=== PATIENT | female | born 1945 | race Caucasian/White ===

== ENCOUNTER 2016-09-16 17:44 | Inpatient (IN) | payer OTHER, BC ==
[~2016-09-16] VITALS: Ht 160 cm; Wt 61.8 kg
[~2016-09-16 17:44] MED LIST: ASPI-435 PO; CRS/10 PO; INDSR/60 PO; PRIM250T9 PO
[2016-09-16] MEDS ORDERED: SODIUM CHLORIDE 0.9% 1000ML 1,000 ML IV STA (18:19)
--- NOTE | 2016-09-16 18:37 | EMERGENCY ROOM VISIT NOTE ---
History Report prepared by Hiral: Cheli Roberts Under the Supervision of: Dr. Remigio Story M.D. First contact with patient: 18:00 Chief Complaint: WEAKNESS Stated Complaint: WEAKNESS,DEHYDRATION History of Present Illness The patient is a 70 year old female who presents to the Emergency Room with complaints of persistent weakness for the past three days. The patient reports that she had gotten into the bathtub three days ago and became too weak and could not get herself out. She denies any pain or fall into the tub. The patient's granddaughters report that the patient appears slower than her baseline today. The patient states that she lives alone. She states that she feels thirsty and denies eating any food for the past three days. The patient states she urinated while in the tub. She states that she smokes a pack of cigarettes each day. The patient reports burning with urination and a recent cough and cold. Source of History: patient, family (granddaughters) Onset: three days Position: other (global) Quality: other (weakness) Timing: other (persistent) Associated Symptoms: + cough, + urinary symptoms (burning with urination) Review of Systems See HPI for pertinent positives & negatives. A total of 10 systems reviewed and were otherwise negative. Past Medical & Surgical Medical Problems: (1) Hypertension Family History Cancer Diabetes mellitus Hypertension Social History Smoking Status: Current Every Day Smoker Alcohol Use: none Drug Use: none Marital Status: single Housing Status: lives with family Occupation Status: retired Current/Historical Medications Scheduled Aspirin (Aspirin 81), 81 MG PO DAILY Citalopram Hydrobromide (Citalopram Hydrobromide), 1 TAB PO DAILY Primidone (Mysoline), 1 TAB PO BID Propranolol Hcl (Propranolol ER), 160 MG PO DAILY Rosuvastatin Calcium (Crestor), 10 MG PO HS Miscellaneous Medications Ibuprofen (Advil), 200 MG PO Allergies Coded Allergies: Atorvastatin (Verified Allergy, Unknown, Unstable, 09/16/16) Physical Exam Vital Signs Date Time Temp Pulse Resp B/P (MAP) Pulse Ox O2 Delivery O2 Flow Rate FiO2 09/16/16 19:15 72 09/16/16 17:47 36.4 77 22 103/55 95 Room Air Physical Exam GENERAL: Patient is in no acute distress. HEENT: No acute trauma, normocephalic atraumatic, mucous membranes moist, no nasal congestion, no scleral icterus. NECK: No stridor, no adenopathy, no meningismus, trachea is midline. LUNGS: Diminished breath sounds bilaterally, no wheezing or rhonchi, no respiratory distress. HEART: Without murmurs gallops or rubs, regular rate and rhythm. ABDOMEN: Soft, nontender, bowel sounds positive, no hernias, no peritonitis. BUTTOCK: No skin breakdown. EXTREMITIES: Contusions to both elbows, consistent with her history, no evidence for underlying fracture. NEUROLOGIC: Oriented x 3, no acute motor or sensory deficits, no focal weakness. SKIN: No rash, no jaundice, no diaphoresis. Medical Decision & Procedures ER Provider Diagnostic Interpretation: Radiology results as stated below per my review and radiologist interpretation: CT SCAN OF THE BRAIN WITHOUT IV CONTRAST CLINICAL HISTORY: Change in mental status. Weakness. COMPARISON STUDY: CT of the brain dated 03/18/2014. TECHNIQUE: Unenhanced axial CT scan of the brain is performed from the vertex to the skull base. The patient was scanned twice due to motion artifact. CT DOSE: 1382.10 mGy.cm FINDINGS: Brain parenchyma: There are age-related involutional changes noting moderate patchy subcortical and periventricular microangiopathic change. Small foci of right parietal, occipital, and frontal encephalomalacia are consistent with remote infarcts. There is no hemorrhage, mass effect, or evidence of acute territorial ischemia by CT criteria. Spivey-white matter is preserved. No extra-axial fluid collection is seen. Ventricles, sulci, cisterns: Prominent secondary to involutional change. Intracranial vasculature: There is atherosclerotic calcification of the cavernous carotid and vertebral arteries. Calvarium: Unremarkable. Sinuses and mastoids: The visualized paranasal sinuses are clear. The mastoid air cells are well pneumatized. Orbits: The bony orbits are grossly intact. IMPRESSION: Senescent changes and remote infarcts as above. There is no hemorrhage, mass effect, or evidence of acute territorial ischemia by CT criteria. Electronically signed by: Remigio Fonseca M.D. 09/16/2016 7:44 PM Dictated Date/Time: 09/16/2016 7:40 PM SINGLE VIEW CHEST CLINICAL HISTORY: Generalized weakness. Change in mental status FINDINGS: An AP, portable, upright chest radiograph is compared to study dated 03/18/2014. The examination is degraded by portable technique and patient rotation. The cardiomediastinal silhouette is unremarkable. There is atherosclerotic calcification of the thoracic aorta. Chronic interstitial thickening is unchanged. There are foci of masslike consolidation in the right upper and right lower lung. The left lung appears clear and there is no large pleural effusion or pneumothorax. The skeletal structures are osteopenic. The bony thorax is grossly intact. IMPRESSION: 1. There are foci of masslike consolidation in the right upper and right lower lung. Correlate clinically for evidence of pneumonia. If there is evidence of pneumonia then radiographic follow-up to resolution is recommended to document resolution. If there is no clinical evidence of pneumonia then a chest CT scan should be considered for further assessment. 2. The left lung is clear and there is no pleural effusion identified. Electronically signed by: Remigio Fonseca M.D. 09/16/2016 7:06 PM Dictated Date/Time: 09/16/2016 7:04 PM Laboratory Results 09/16/16 18:40 Red Blood Count 4.19, Mean Corpuscular Volume 92.6, Mean Corpuscular Hemoglobin 31.0, Mean Corpuscular Hemoglobin Concent 33.5, Mean Platelet Volume 9.2, Neutrophils (%) (Auto) 85.7, Lymphocytes (%) (Auto) 6.3, Monocytes (%) (Auto) 6.1, Eosinophils (%) (Auto) 0.8, Basophils (%) (Auto) 0.1, Neutrophils # (Auto) 15.28, Lymphocytes # (Auto) 1.12, Monocytes # (Auto) 1.09, Eosinophils # (Auto) 0.14, Basophils # (Auto) 0.02 09/16/16 18:40 Test 09/16/16 00:00 09/16/16 18:40 09/16/16 19:55 White Blood Count 17.82 K/uL (4.8-10.8) Red Blood Count 4.19 M/uL (4.2-5.4) Hemoglobin 13.0 g/dL (12.0-16.0) Hematocrit 38.8 % (37-47) Mean Corpuscular Volume 92.6 fL (80-100) Mean Corpuscular Hemoglobin 31.0 pg (25-34) Mean Corpuscular Hemoglobin Concent 33.5 g/dl (32-36) Platelet Count 557 K/uL (130-400) Mean Platelet Volume 9.2 fL (7.4-10.4) Neutrophils (%) (Auto) 85.7 % Lymphocytes (%) (Auto) 6.3 % Monocytes (%) (Auto) 6.1 % Eosinophils (%) (Auto) 0.8 % Basophils (%) (Auto) 0.1 % Neutrophils # (Auto) 15.28 K/uL (1.4-6.5) Lymphocytes # (Auto) 1.12 K/uL (1.2-3.4) Monocytes # (Auto) 1.09 K/uL (0.11-0.59) Eosinophils # (Auto) 0.14 K/uL (0-0.5) Basophils # (Auto) 0.02 K/uL (0-0.2) RDW Standard Deviation 48.9 fL (36.4-46.3) RDW Coefficient of Variation 14.3 % (11.5-14.5) Immature Granulocyte % (Auto) 1.0 % Immature Granulocyte # (Auto) 0.17 K/uL (0.00-0.02) Red Blood Cell Morphology Unremarkable Anion Gap 9.0 mmol/L (3-11) Estimated GFR () 58.1 Estimated GFR (Non- 50.1 BUN/Creatinine Ratio 26.9 (10-20) Calcium Level 8.6 mg/dl (8.5-10.1) Total Bilirubin 0.4 mg/dl (0.2-1) Aspartate Amino Transf (AST/SGOT) 43 U/L (15-37) Alanine Aminotransferase (ALT/SGPT) 28 U/L (12-78) Alkaline Phosphatase 117 U/L (45-117) Total Creatine Kinase 288 U/L (26-192) Troponin I < 0.015 ng/ml (0-0.045) Total Protein 7.4 gm/dl (6.4-8.2) Albumin 2.4 gm/dl (3.4-5.0) Globulin 5.0 gm/dl (2.5-4.0) Albumin/Globulin Ratio 0.5 (0.9-2) Thyroid Stimulating Hormone (TSH) 1.790 uIu/ml (0.300-4.500) Lactic Acid Level 1.6 mmol/L (0.4-2.0) Laboratory results reviewed by me. Medications Administered Medications (Trade) Dose Ordered Sig/Paula Route Start Time Stop Time Status Last Admin Dose Admin Sodium Chloride 1,000 ml @ 999 mls/hr Q1H1M STAT IV 09/16/16 18:19 09/16/16 19:19 DC 09/16/16 20:08 999 MLS/HR Piperacillin Sod/ Tazobactam Sod (Zosyn Iv) 4.5 gm NOW STAT IV 09/16/16 19:41 09/16/16 19:42 DC 09/16/16 20:08 4.5 GM ECG Indication: weakness Rate (beats per minute): 69 Rhythm: normal sinus Findings: no acute ischemic change, no ectopy ED Course 1806: The patient was evaluated in room B10. A complete history and physical exam was performed by the work and family life consultant. 1818: Ordered Sodium Chloride 1000 ml @ 999 mls/hr IV. 1827: The patient was evaluated in room B10. A complete history and physical exam was performed. 1947: The resident reevaluated the patient and she is resting comfortably. After discussing all the exam findings with the patient and her family he discussed the treatment plan with the family. They all verbalized complete understanding and agreement. The patient will be evaluated for further treatment. 2029: The patient's case was discussed with Clarence Hennessy. He is going to evaluate the patient for further treatment. Medical Decision The patient is a 70 year old female who presents to the ED with complaints of weakness. Differential diagnoses considered include rhabdomyolysis, dehydration , intracranial bleeding, fracture, stroke, renal failure, infection, anemia, UTI. There is a moderate leukocytosis at 17,000, this could be consistent with infection. No concerning anemia. No significant electrolyte abnormality or kidney failure. There is no evidence for rhabdomyolysis. There is no hepatitis. The patient appears to be in a euthyroid state. Blood culture is pending. Chest film shows a possible pneumonia on the right. No CHF. Brain CT shows no acute bleed or mass effect. Urinalysis result is presently pending. EKG shows a sinus rhythm, no acute ischemia. Cardiac enzyme testing times one is not consistent with acute cardiac injury. Lactic acid level is not elevated making severe sepsis less likely. The patient received IV saline, she was given IV Zosyn. Given the prolonged down time for around 3 days, given her weakness, given the fact that she lives alone, given her pneumonia, admission/observation was felt warranted. I spoke with the foster care case manager, the patient is aware of her findings. The on-call hospitalist has been consulted. Medication Reconciliation: I attest that I have personally reviewed the patient' s current medication list. Blood Pressure Screening: Patient was found to have normal blood pressure on screening and does not require follow-up. Consults Time Called: 1950 Consulting Physician: Clarence Hennessy The patient's case was discussed with Clarence Hennessy. He is going to evaluate the patient for further treatment. Impression Primary Impression: Pneumonia Additional Impressions: Weakness Dehydration Scribe Attestation The scribe's documentation has been prepared under my direction and personally reviewed by me in its entirety. I confirm that the note above accurately reflects all work, treatment, procedures, and medical decision making performed by me. Departure Information Dispostion Being Evaluated By Hospitalist Referrals Isha Narvaze M.D. (PCP) Problem Qualifiers
--- NOTE | 2016-09-16 18:45 | EMERGENCY ROOM VISIT NOTE ---
History First contact with patient: 18:06 Chief Complaint: WEAKNESS Stated Complaint: WEAKNESS,DEHYDRATION History of Present Illness The patient is a 70 year old female who presents to the Emergency Room with complaints of weakness. The patient was found at home in the bathtub by her granddaughter after being unable to get up out of the tub. She was in there for an unknown period of time and was found in her own urine in the tube. She denies any hip or elbow pain or any falls. She is constipated and has not had a bowel movement in 3 days but does have constipation regularly. She denies any fever, chills, abdominal pain, diarrhea, chest pain, headache, or vision changes. Her granddaughter states that Katharine does seem more unsteady today and is much slower and more hesitant when moving around. Review of Systems See HPI for pertinent positives and negatives. A total of ten systems were reviewed and were otherwise negative. Past Medical/Surgical History Medical Problems: (1) Hypertension Family History Cancer Diabetes mellitus Hypertension Social History Smoking Status: Current Every Day Smoker Alcohol Use: none Drug Use: none Marital Status: single Housing Status: lives with family Occupation Status: retired Current/Historical Medications Scheduled Aspirin (Aspirin 81), 81 MG PO DAILY Citalopram Hydrobromide (Citalopram Hydrobromide), 1 TAB PO DAILY Primidone (Mysoline), 1 TAB PO BID Propranolol Hcl (Propranolol ER), 160 MG PO DAILY Rosuvastatin Calcium (Crestor), 10 MG PO HS Miscellaneous Medications Ibuprofen (Advil), 200 MG PO Allergies Coded Allergies: Atorvastatin (Verified Allergy, Unknown, Unstable, 09/16/16) Physical Exam Vital Signs Date Time Temp Pulse Resp B/P (MAP) Pulse Ox O2 Delivery O2 Flow Rate FiO2 09/16/16 19:15 72 09/16/16 17:47 36.4 77 22 103/55 95 Room Air Physical Exam GENERAL: Awake, alert, well-appearing, in no distress HENT: Normocephalic, atraumatic. Oropharynx unremarkable. EYES: Normal conjunctiva. Sclera non-icteric. NECK: Supple. No nuchal rigidity. RESPIRATORY: Decreased breath sounds bilaterally CARDIAC: Regular rate, normal rhythm. Extremities warm and well perfused. Pulses equal. ABDOMEN: Soft, non-distended. No tenderness to palpation. No rebound or guarding. No masses. RECTAL: Deferred. MUSCULOSKELETAL: Chest examination reveals no tenderness. The back is symmetrical on inspection without obvious abnormality. There is no CVA tenderness to palpation. No joint edema. Hips are non tender to palpation, hip rocking was non tender. Left elbow hematoma, nontender to palpation. LOWER EXTREMITIES: Calves are equal size bilaterally and non-tender. No edema. No discoloration. NEURO: Normal sensorium. No sensory or motor deficits noted. SKIN: No rash or jaundice noted. Medical Decision & Procedures Laboratory Results 09/16/16 18:40 Red Blood Count 4.19, Mean Corpuscular Volume 92.6, Mean Corpuscular Hemoglobin 31.0, Mean Corpuscular Hemoglobin Concent 33.5, Mean Platelet Volume 9.2, Neutrophils (%) (Auto) 85.7, Lymphocytes (%) (Auto) 6.3, Monocytes (%) (Auto) 6.1, Eosinophils (%) (Auto) 0.8, Basophils (%) (Auto) 0.1, Neutrophils # (Auto) 15.28, Lymphocytes # (Auto) 1.12, Monocytes # (Auto) 1.09, Eosinophils # (Auto) 0.14, Basophils # (Auto) 0.02 09/16/16 18:40 Test 09/16/16 00:00 09/16/16 18:40 09/16/16 19:55 White Blood Count 17.82 K/uL (4.8-10.8) Red Blood Count 4.19 M/uL (4.2-5.4) Hemoglobin 13.0 g/dL (12.0-16.0) Hematocrit 38.8 % (37-47) Mean Corpuscular Volume 92.6 fL (80-100) Mean Corpuscular Hemoglobin 31.0 pg (25-34) Mean Corpuscular Hemoglobin Concent 33.5 g/dl (32-36) Platelet Count 557 K/uL (130-400) Mean Platelet Volume 9.2 fL (7.4-10.4) Neutrophils (%) (Auto) 85.7 % Lymphocytes (%) (Auto) 6.3 % Monocytes (%) (Auto) 6.1 % Eosinophils (%) (Auto) 0.8 % Basophils (%) (Auto) 0.1 % Neutrophils # (Auto) 15.28 K/uL (1.4-6.5) Lymphocytes # (Auto) 1.12 K/uL (1.2-3.4) Monocytes # (Auto) 1.09 K/uL (0.11-0.59) Eosinophils # (Auto) 0.14 K/uL (0-0.5) Basophils # (Auto) 0.02 K/uL (0-0.2) RDW Standard Deviation 48.9 fL (36.4-46.3) RDW Coefficient of Variation 14.3 % (11.5-14.5) Immature Granulocyte % (Auto) 1.0 % Immature Granulocyte # (Auto) 0.17 K/uL (0.00-0.02) Red Blood Cell Morphology Unremarkable Anion Gap 9.0 mmol/L (3-11) Estimated GFR () 58.1 Estimated GFR (Non- 50.1 BUN/Creatinine Ratio 26.9 (10-20) Calcium Level 8.6 mg/dl (8.5-10.1) Total Bilirubin 0.4 mg/dl (0.2-1) Aspartate Amino Transf (AST/SGOT) 43 U/L (15-37) Alanine Aminotransferase (ALT/SGPT) 28 U/L (12-78) Alkaline Phosphatase 117 U/L (45-117) Total Creatine Kinase 288 U/L (26-192) Troponin I < 0.015 ng/ml (0-0.045) Total Protein 7.4 gm/dl (6.4-8.2) Albumin 2.4 gm/dl (3.4-5.0) Globulin 5.0 gm/dl (2.5-4.0) Albumin/Globulin Ratio 0.5 (0.9-2) Thyroid Stimulating Hormone (TSH) 1.790 uIu/ml (0.300-4.500) Lactic Acid Level 1.6 mmol/L (0.4-2.0) Medications Administered Medications (Trade) Dose Ordered Sig/Paula Route Start Time Stop Time Status Last Admin Dose Admin Sodium Chloride 1,000 ml @ 999 mls/hr Q1H1M STAT IV 09/16/16 18:19 09/16/16 19:19 DC 09/16/16 20:08 999 MLS/HR Piperacillin Sod/ Tazobactam Sod (Zosyn Iv) 4.5 gm NOW STAT IV 09/16/16 19:41 6/2/17 19:42 DC 09/16/16 20:08 4.5 GM Medical Decision Patient is a 70 year old female that presents with a 1 week history of weakness Differential diagnosis includes UTI, Pneumonia, Constipation, Dementia, URI, and other etiologies were considered - CBC, BMP, CPK, TSH, Troponin - Head CT, CXR, UA Cath, EKG - Chest X Ray shows right sided masses signifying a possible pneumonia - Head CT Negative - Based on CXR family did not feel comfortable treating the patient at home especially with ongoing weakness - Discussed case with [facility] Hospitalist who was agreeable to seeing the patient for possible observation in the hospital Impression Primary Impression: Pneumonia Additional Impression: Weakness Departure Information Dispostion Admitted as an inpatient Condition GOOD Referrals Isha Narvaez M.D. (PCP) Patient Instructions [facility] Problem Qualifiers Primary Impression: Pneumonia Pneumonia type: due to unspecified organism Laterality: right Lung location : unspecified part of lung Qualified Codes: J18.9 - Pneumonia, unspecified organism
[2016-09-16 18:47] LABS: HEMATOCRIT 38.8 % (37-47); MEAN CELL VOLUME 92.6 fL (80-100); MEAN CORPUSCULAR HGB CONC 33.5 g/dl (32-36); MEAN PLATELET VOLUME 9.2 fL (7.4-10.4); PLATELET COUNT 557 K/uL (130-400); RED BLOOD COUNT 4.19 M/uL (4.2-5.4); WHITE BLOOD COUNT 17.82 K/uL (4.8-10.8)
[2016-09-16 19:05] LABS: ALT/SGPT 28 U/L (12-78); AST/SGOT 43 U/L (15-37); BLOOD UREA NITROGEN 30 mg/dl (7-18); BUN/CREATININE RATIO 26.9 (10-20); CALCIUM 8.6 mg/dl (8.5-10.1); CARBON DIOXIDE 30 mmol/L (21-32); CHLORIDE 98 mmol/L (98-107); GLUCOSE 119 mg/dl (70-99); POTASSIUM 4.4 mmol/L (3.5-5.1); SODIUM 137 mmol/L (136-145)
--- NOTE | 2016-09-16 19:07 | DIAGNOSTIC IMAGING REPORT ---
SINGLE VIEW CHEST CLINICAL HISTORY: Generalized weakness. Change in mental status FINDINGS: An AP, portable, upright chest radiograph is compared to study dated 03/18/2014. The examination is degraded by portable technique and patient rotation. The cardiomediastinal silhouette is unremarkable. There is atherosclerotic calcification of the thoracic aorta. Chronic interstitial thickening is unchanged. There are foci of masslike consolidation in the right upper and right lower lung. The left lung appears clear and there is no large pleural effusion or pneumothorax. The skeletal structures are osteopenic. The bony thorax is grossly intact. IMPRESSION: 1. There are foci of masslike consolidation in the right upper and right lower lung. Correlate clinically for evidence of pneumonia. If there is evidence of pneumonia then radiographic follow-up to resolution is recommended to document resolution. If there is no clinical evidence of pneumonia then a chest CT scan should be considered for further assessment. 2. The left lung is clear and there is no pleural effusion identified. Electronically signed by: Remigio Fonseca M.D. 09/16/2016 7:06 PM Dictated Date/Time: 09/16/2016 7:04 PM
[2016-09-16 19:21] LABS: ALB/GLOB RATIO 0.5 (0.9-2); ALKALINE PHOSPHATASE 117 U/L (45-117)
[2016-09-16] MEDS ORDERED: CITA10TA4 PO (19:29)
[2016-09-16] MEDS ORDERED: IBUP-1050 PO (19:29)
[2016-09-16] MEDS ORDERED: PIPERACILLIN/TAZOBACTAM 4.5 GM/100ML D5W IV STA (19:41)
[2016-09-16 19:43] LABS: BASO % 0.1 %; BASO ABS # 0.02 K/uL (0-0.2); COMPLETE YES; EOS % 0.8 %; LYMPH % 6.3 %; LYMPH ABS # 1.12 K/uL (1.2-3.4); MONO % 6.1 %; NEUT % 85.7 %
--- NOTE | 2016-09-16 19:45 | DIAGNOSTIC IMAGING REPORT ---
CT SCAN OF THE BRAIN WITHOUT IV CONTRAST CLINICAL HISTORY: Change in mental status. Weakness. COMPARISON STUDY: CT of the brain dated 03/18/2014. TECHNIQUE: Unenhanced axial CT scan of the brain is performed from the vertex to the skull base. The patient was scanned twice due to motion artifact. CT DOSE: 1382.10 mGy.cm FINDINGS: Brain parenchyma: There are age-related involutional changes noting moderate patchy subcortical and periventricular microangiopathic change. Small foci of right parietal, occipital, and frontal encephalomalacia are consistent with remote infarcts. There is no hemorrhage, mass effect, or evidence of acute territorial ischemia by CT criteria. Spivey-white matter is preserved. No extra-axial fluid collection is seen. Ventricles, sulci, cisterns: Prominent secondary to involutional change. Intracranial vasculature: There is atherosclerotic calcification of the cavernous carotid and vertebral arteries. Calvarium: Unremarkable. Sinuses and mastoids: The visualized paranasal sinuses are clear. The mastoid air cells are well pneumatized. Orbits: The bony orbits are grossly intact. IMPRESSION: Senescent changes and remote infarcts as above. There is no hemorrhage, mass effect, or evidence of acute territorial ischemia by CT criteria. Electronically signed by: Remigio Fonseca M.D. 09/16/2016 7:44 PM Dictated Date/Time: 09/16/2016 7:40 PM
[2016-09-16 20:32] LABS: URINE APPEARANCE CLOUDY (CLEAR); URINE COLOR DK YELLOW; URINE EPITHELIAL CELL AUTO >30 /lpf (0-5); URINE NITRITE POS (NEG); URINE PH 5.5 (4.5-7.5); URINE SPECIFIC GRAVITY 1.028 (1.000-1.030); UROBILINOGEN NEG (NEG); ZZURINE CULT IF INDIC CATH YES
[2016-09-16 20:34] LABS: MANUAL MICROSCOPIC REQUIRED? NO; REVIEW REQ? YES
[2016-09-16 20:35] LABS: URINE BILIRUBIN NEG (NEG)
[2016-09-16 20:57] LABS: URINE PATH CASTS 1-5 GRANULAR CASTS /lpf (0)
[2016-09-16 21:42] VITALS: BP 98/52; PULSE 79; TEMP 36.5; O2SAT 93; Ht 160 cm; Wt 61.8 kg
[2016-09-16] MEDS ORDERED: ACETAMINOPHEN 325 MG TAB PO PRN (22:45)
[2016-09-16] MEDS ORDERED: POLYETHYLENE (MIRALAX) 17 GM PACK PO PRN (22:45)
[2016-09-16] MEDS ORDERED: ONDANSETRON INJ 2 MG/ML 2 ML VIAL IV PRN (22:45)
[2016-09-16] MEDS ORDERED: PHENAZOPYRIDINE HCL 100 MG TAB PO ONE (22:50)
--- NOTE | 2016-09-16 23:09 | History and Physical ---
History & Physical Date & Time of Service: Sep 16, 2016 at 22:49 Chief Complaint: Pneumonia Primary Care Physician: Isha Narvaez M.D. History of Present Illness Source: patient, clinic records, hospital records 70 yo female who lives alone became extremely weak after a productive cough for two days and was unable to get out of her bathtub for 3 days. Ultimately a neighbor stopped by and was able to call EMS for her. She is an active smoker. She also reports that she has been having dysuria for the past 2 weeks or more. She denies urinary urgency, flank pain, pelvic or abdominal pain, fevers, chills. Her weakness was generalized. She denies any chest pain, headaches, visual changes, rashes, food allergies, or diarrhea. She reports chronic constipation. She states that she declined to tell her PCP about the dysuria but didn't give a reason why. Past Medical/Surgical History Medical Problems: (1) Carotid stenosis Status: Chronic (2) Depression Status: Chronic (3) HTN (hypertension) Status: Chronic (4) Hyperlipidemia Status: Chronic (5) Hypertension Status: Chronic (6) Osteoporosis Status: Chronic SHE DENIES ANY PRIOR SURGERIES Family History Cancer MOTHER (BREAST CANCER) Diabetes mellitus Hypertension Social History Smoking Status: Current Every Day Smoker Smokeless Tobacco Use: No Alcohol Use: none Drug Use: none Marital Status: single Housing status: lives alone Occupational Status: retired Immunizations History of Influenza Vaccine: Yes Influenza Vaccine Date: Feb 21, 2014 History of Tetanus Vaccine?: Unknown History of Pneumococcal: Yes Pneumococcal Date: Jun 10, 2016 History of Hepatitis B Vaccine: No Multi-Drug Resistant Organisms History of MDRO: No Allergies Coded Allergies: Atorvastatin (Verified Allergy, Unknown, Unstable, 09/16/16) Home Medications Scheduled Aspirin (Aspirin 81), 81 MG PO DAILY Citalopram Hydrobromide (Citalopram Hydrobromide), 1 TAB PO DAILY Primidone (Mysoline), 1 TAB PO BID Propranolol Hcl (Propranolol ER), 60 MG PO DAILY Rosuvastatin Calcium (Crestor), 10 MG PO HS Miscellaneous Medications Ibuprofen (Advil), 200 MG PO Review of Systems Ten systems were reviewed and negative except as indicated in HPI. Physical Exam Vital Signs Date Time Temp Pulse Resp B/P (MAP) Pulse Ox O2 Delivery O2 Flow Rate FiO2 09/16/16 21:42 36.5 79 19 98/52 93 Room Air 09/16/16 21:00 81 26 104/54 92 Room Air 09/16/16 20:30 75 33 122/72 09/16/16 20:12 101/53 09/16/16 19:15 72 09/16/16 19:06 108/63 09/16/16 17:47 36.4 77 22 103/55 95 Room Air GEN: elderly and frail-appearing, in no acute distress, alert and appropriate, no tachypnea or work of breathing HEENT: NC/AT, normal sclerae/conjunctivae, MMM CARDIO: reg rate, S1/2 heard without m/g/r LUNGS: some coarse rhonchi on the R lyles but clearer on the left, poor diaphragmatic excursion, no wheezes or rales. ABD: soft, non-tender, non-distended, no rebound or guarding, +BS, no CVA tenderness EXTREMITY: RP and DP palpable 2+ bilat, no LE swelling or edema, extremities are warm and well-perfused NEURO: CN 2-12 grossly intact, no gross focal deficits. MUSC: 5/5 strength throughout, moves all extremities equally. SKIN: warm and dry Diagnostics Laboratory Results Results Past 24 Hours Test 09/16/16 00:00 09/16/16 18:40 09/16/16 19:55 Range/Units Urine Color DK YELLOW Urine Appearance CLOUDY CLEAR Urine pH 5.5 4.5-7.5 Urine Specific [place] 1.028 1.000-1.030 Urine Protein 2+ NEG Urine Glucose (UA) NEG NEG Urine Ketones 1+ NEG Urine Occult Blood 2+ NEG Urine Nitrite POS NEG Urine Bilirubin NEG NEG Urine Urobilinogen NEG NEG Urine Leukocyte Esterase TRACE NEG Urine WBC (Auto) 5-10 0-5 /hpf Urine RBC (Auto) 0-4 0-4 /hpf Urine Hyaline Casts (Auto) 10-30 0-5 /lpf Urine Epithelial Cells (Auto) >30 0-5 /lpf Urine Bacteria (Auto) 3+ NEG Urine Renal Epithelial Cells 5-10 0-5 /lpf Urine Pathogenic Casts 1-5 GRANULAR CASTS 0 /lpf Urine Yeast (Auto) PRESENT NONE PRSENT White Blood Count 17.82 4.8-10.8 K/uL Red Blood Count 4.19 4.2-5.4 M/uL Hemoglobin 13.0 12.0-16.0 g/dL Hematocrit 38.8 37-47 % Mean Corpuscular Volume 92.6 80-100 fL Mean Corpuscular Hemoglobin 31.0 25-34 pg Mean Corpuscular Hemoglobin Concent 33.5 32-36 g/dl Platelet Count 557 130-400 K/uL Mean Platelet Volume 9.2 7.4-10.4 fL Neutrophils (%) (Auto) 85.7 % Lymphocytes (%) (Auto) 6.3 % Monocytes (%) (Auto) 6.1 % Eosinophils (%) (Auto) 0.8 % Basophils (%) (Auto) 0.1 % Neutrophils # (Auto) 15.28 1.4-6.5 K/uL Lymphocytes # (Auto) 1.12 1.2-3.4 K/uL Monocytes # (Auto) 1.09 0.11-0.59 K/uL Eosinophils # (Auto) 0.14 0-0.5 K/uL Basophils # (Auto) 0.02 0-0.2 K/uL RDW Standard Deviation 48.9 36.4-46.3 fL RDW Coefficient of Variation 14.3 11.5-14.5 % Immature Granulocyte % (Auto) 1.0 % Immature Granulocyte # (Auto) 0.17 0.00-0.02 K/uL Red Blood Cell Morphology Unremarkable Sodium Level 137 136-145 mmol/L Potassium Level 4.4 3.5-5.1 mmol/L Chloride Level 98 98-107 mmol/L Carbon Dioxide Level 30 21-32 mmol/L Anion Gap 9.0 3-11 mmol/L Blood Urea Nitrogen 30 7-18 mg/dl Creatinine 1.10 0.60-1.20 mg/dl Estimated GFR () 58.1 Estimated GFR (Non- 50.1 BUN/Creatinine Ratio 26.9 10-20 Random Glucose 119 70-99 mg/dl Calcium Level 8.6 8.5-10.1 mg/dl Total Bilirubin 0.4 0.2-1 mg/dl Aspartate Amino Transf (AST/SGOT) 43 15-37 U/L Alanine Aminotransferase (ALT/SGPT) 28 12-78 U/L Alkaline Phosphatase 117 45-117 U/L Total Creatine Kinase 288 26-192 U/L Troponin I < 0.015 0-0.045 ng/ml Total Protein 7.4 6.4-8.2 gm/dl Albumin 2.4 3.4-5.0 gm/dl Globulin 5.0 2.5-4.0 gm/dl Albumin/Globulin Ratio 0.5 0.9-2 Thyroid Stimulating Hormone (TSH) 1.790 0.300-4.500 uIu/ml Lactic Acid Level 1.6 0.4-2.0 mmol/L Microbiology Results 09/16/16 Blood Culture, Received Pending 09/16/16 Blood Culture, Received Pending 09/16/16 Urine Culture, Received Pending Diagnostic Radiology SINGLE VIEW CHEST CLINICAL HISTORY: Generalized weakness. Change in mental status FINDINGS: An AP, portable, upright chest radiograph is compared to study dated 03/18/2014. The examination is degraded by portable technique and patient rotation. The cardiomediastinal silhouette is unremarkable. There is atherosclerotic calcification of the thoracic aorta. Chronic interstitial thickening is unchanged. There are foci of masslike consolidation in the right upper and right lower lung. The left lung appears clear and there is no large pleural effusion or pneumothorax. The skeletal structures are osteopenic. The bony thorax is grossly intact. IMPRESSION: 1. There are foci of masslike consolidation in the right upper and right lower lung. Correlate clinically for evidence of pneumonia. If there is evidence of pneumonia then radiographic follow-up to resolution is recommended to document resolution. If there is no clinical evidence of pneumonia then a chest CT scan should be considered for further assessment. 2. The left lung is clear and there is no pleural effusion identified. - CT SCAN OF THE BRAIN WITHOUT IV CONTRAST CLINICAL HISTORY: Change in mental status. Weakness. COMPARISON STUDY: CT of the brain dated 03/18/2014. TECHNIQUE: Unenhanced axial CT scan of the brain is performed from the vertex to the skull base. The patient was scanned twice due to motion artifact. CT DOSE: 1382.10 mGy.cm FINDINGS: Brain parenchyma: There are age-related involutional changes noting moderate patchy subcortical and periventricular microangiopathic change. Small foci of right parietal, occipital, and frontal encephalomalacia are consistent with remote infarcts. There is no hemorrhage, mass effect, or evidence of acute territorial ischemia by CT criteria. Spivey-white matter is preserved. No extra-axial fluid collection is seen. Ventricles, sulci, cisterns: Prominent secondary to involutional change. Intracranial vasculature: There is atherosclerotic calcification of the cavernous carotid and vertebral arteries. Calvarium: Unremarkable. Sinuses and mastoids: The visualized paranasal sinuses are clear. The mastoid air cells are well pneumatized. Orbits: The bony orbits are grossly intact. IMPRESSION: Senescent changes and remote infarcts as above. There is no hemorrhage, mass effect, or evidence of acute territorial ischemia by CT criteria. EKG EKG-pending Impression Assessment and Plan 70 yo F with generalized weakness at home 2/2 UTI and pneumonia. 1. CAP-risk factors for this include smoking and although she was in the bathtub for three days, she reports a productive cough 2 days prior tot he onset of weakness. She has had both Pneumovax and Prevnar which are UTD. Treat with Rocephin and Azithromycin. As Legionella common in elderly smokers, will order a urine Ag. Likely OK to move off telemetry in am. 2. Acute cystitis-no fevers or chills or other signs of systemic illness. Symptoms have been ongoing for over two weeks per her report. Rocephin for empiric coverage of UTI at this time. Pyridium ordered for comfort. Awaiting culture results. 3. Generalized weakness 2/2 #1 and 2 above. Pt lives alone and needs PT/OT evaluation prior to returning. Of note pt does not have any BECKI, does not appear dehydrated, and states that she has been drinking lots of water. Will also order vit D as she has a h/o deficiency in this. 4. Tobacco use-counseled on smoking cessation. Nicotine patch ordered. 5. Essential tremor-cont home meds. 6. Leukocytosis 2.2 above. DVT proph-heparin SQ FULL CODE Dispo-to tele[facility] Tele[facility] Advanced Directives Existing Living Will: Yes Existing Power of [employer] Analyst: Yes (currently out town) Resuscitation Status FULL RESUSCITATION VTE Prophylaxis VTE Risk Assessment Done? Y/N: Yes Risk Level: Moderate Given or contraindicated: Unfractionated heparin SQ
[2016-09-16 23:48] VITALS: BP 103/66; PULSE 75; TEMP 36.6; O2SAT 91
[2016-09-17] VITALS (8 sets, daily range): BP systolic 95–110; BP diastolic 61–68; PULSE 69–82; TEMP 36.3–37; O2SAT 93–97
[2016-09-17] MEDS: CEFTRIAXONE SOD INJ 1 GM in DEXTROSE 5% ADD-VANTAGE 50ML 50 ML IV SCH ×2 (00:26→23:34)
[2016-09-17] MEDS: AZITHROMYCIN IV 500 MG in DEXTROSE 5% 250ML 250 ML IV SCH (01:10)
[2016-09-17] MEDS: ERGOCALCIFEROL 50,000 INTER.UNIT CAP PO SCH (01:27)
[2016-09-17] MEDS ORDERED: SODIUM CHLORIDE 0.9% 1000ML 1,000 ML IV ONE (06:15)
[2016-09-17 07:15] LABS: HEMATOCRIT 36.6 % (37-47); MEAN CELL VOLUME 94.1 fL (80-100); MEAN CORPUSCULAR HEMOGLOBIN 30.8 pg (25-34); MEAN CORPUSCULAR HGB CONC 32.8 g/dl (32-36); MEAN PLATELET VOLUME 9.6 fL (7.4-10.4); PLATELET COUNT 508 K/uL (130-400); RED BLOOD COUNT 3.89 M/uL (4.2-5.4); WHITE BLOOD COUNT 15.62 K/uL (4.8-10.8)
[2016-09-17 07:26] LABS: INR 1.1 (0.9-1.1); PROTHROMBIN TIME (PATIENT) 11.9 SECONDS (9.0-12.0)
[2016-09-17] MEDS: CITALOPRAM 20 MG TAB PO SCH (07:45)
[2016-09-17] MEDS: PROPRANOLOL HCL 60 MG LA CAP PO SCH (07:46)
[2016-09-17] MEDS: PHENAZOPYRIDINE HCL 100 MG TAB PO SCH ×3 (07:46→21:33)
[2016-09-17] MEDS: PRIMIDONE 250 MG TAB PO SCH ×2 (07:46→21:33)
[2016-09-17] MEDS: NICOTINE 21 MG/24 HR TDSY TD SCH (07:47)
[2016-09-17] MEDS: ASPIRIN 81 MG ECTAB PO SCH (07:47)
[2016-09-17 07:58] LABS: CALCIUM 8.3 mg/dl (8.5-10.1); CREATININE 0.86 mg/dl (0.60-1.20); MAGNESIUM 2.3 mg/dl (1.8-2.4); POTASSIUM 4.4 mmol/L (3.5-5.1)
[2016-09-17] MEDS: HEPARIN SOD 5000 UNIT/0.5 ML CARP SQ SCH ×3 (08:36→21:34)
[2016-09-17] MEDS: ROSUVASTATIN CALCIUM 10 MG TAB PO SCH (21:33)
--- NOTE | 2016-09-17 23:32 | Progress Note ---
Medicine Progress Note Date & Time of Visit: Sep 17, 2016 at 16:00 . Subjective Feels better. No fever or chills. Occasional cough, no hemoptysis, no shortness of breath. No chest pain. No nausea, vomiting, diarrhea. No urinary symptoms. Granddaughters visiting. . Objective Last 8 Hrs Date Time Temp Pulse Resp B/P (MAP) Pulse Ox O2 Delivery O2 Flow Rate FiO2 09/17/16 23:29 36.6 70 20 106/61 (76) 94 Room Air 09/17/16 20:00 Room Air 09/17/16 19:52 37.0 73 20 95/62 (73) 93 Room Air 1.5 09/17/16 16:00 Nasal Cannula 09/17/16 15:42 36.5 82 18 104/62 (76) 93 Room Air Physical Exam: General- sitting in chair, no distress Eyes- anicteric Neck- no JVD Lungs- clear to auscultation Heart- regular Abdomen- normal bowel sounds, soft, nontender Extremities- no pretibial edema or calf tenderness Neuro- alert, slightly confused . Laboratory Results: Last 24 Hours Test 09/17/16 05:40 09/17/16 07:10 White Blood Count 15.62 K/uL Red Blood Count 3.89 M/uL Hemoglobin 12.0 g/dL Hematocrit 36.6 % Mean Corpuscular Volume 94.1 fL Mean Corpuscular Hemoglobin 30.8 pg Mean Corpuscular Hemoglobin Concent 32.8 g/dl RDW Standard Deviation 49.9 fL RDW Coefficient of Variation 14.5 % Platelet Count 508 K/uL Mean Platelet Volume 9.6 fL Prothrombin Time 11.9 SECONDS Prothromb Time International Ratio 1.1 Sodium Level 139 mmol/L Potassium Level 4.4 mmol/L Chloride Level 102 mmol/L Carbon Dioxide Level 30 mmol/L Anion Gap 7.0 mmol/L Blood Urea Nitrogen 22 mg/dl Creatinine 0.86 mg/dl Est Creatinine Clear Calc Drug Dose 48.9 ml/min Estimated GFR () 78.2 Estimated GFR (Non- 67.5 BUN/Creatinine Ratio 26.0 Random Glucose 93 mg/dl Calcium Level 8.3 mg/dl Magnesium Level 2.3 mg/dl Assessment & Plan UTI Urine culture growing Escherichia coli. Continue ceftriaxone. POSSIBLE PNEUMONIA / ABNORMAL CHEST X-RAY Chest x-ray demonstrated right upper lobe and right lower lobe densities. Smoker. Occasional cough, no hemoptysis. Continue azithromycin and ceftriaxone for possible community-acquired pneumonia. Will obtain CT of chest for more complete imaging, but wait until renal function improves so that contrast study can be performed. DEHYDRATION IV fluids. CEREBROVASCULAR DISEASE Old strokes noted on CT scan. Continue aspirin and rosuvastatin. Smoking cessation counseling. ESSENTIAL TREMOR Continue propranolol. SMOKING Smoking cessation counseling. DEPRESSION Continue citalopram. GENERALIZED WEAKNESS Patient unable to help herself out of bathtub for 3 days. Generalized weakness probably multifactorial. PT/OT. VTE PROPHYLAXIS Moderate to high risk for VTE. SQ heparin. Ambulate. DISPOSITION To be determined. May benefit from inpatient rehabilitation or skilled care. Family Medicine follow-up with Dr. Narvaez. Ghada visiting and given update. . Procedures: cardiac monitoring intravenous fluids intravenous medications CT head . Current Inpatient Medications: Current Inpatient Medications Medications (Trade) Dose Ordered Sig/Paula Route Start Time Stop Time Status Last Admin Dose Admin Heparin Sodium (Porcine) (Heparin Sq 5000 Unit/0.5ml) 5,000 unit Q8 SQ 09/17/16 08:00 10/17/16 07:59 09/17/16 21:34 5,000 UNIT Acetaminophen (Tylenol Tab) 650 mg Q4H PRN PO 09/16/16 22:45 10/16/16 22:44 Ondansetron HCl (Zofran Inj) 4 mg Q6H PRN IV 09/16/16 22:45 10/16/16 22:44 Polyethylene (Miralax Powder Packet) 17 gm DAILY PRN PO 09/16/16 22:45 10/16/16 22:44 Nicotine (Nicoderm Cq 21MG Patch) 1 patch DAILY@0900 TD 09/17/16 09:00 10/17/16 08:59 09/17/16 07:47 1 PATCH Miscellaneous (Remove Nicoderm Patch) 1 ea DAILY@2100 N/A 09/17/16 21:00 10/17/16 20:59 09/17/16 21:00 1 EA Aspirin (Ecotrin Tab) 81 mg DAILY PO 09/17/16 09:00 10/17/16 08:59 09/17/16 07:47 81 MG Primidone (Mysoline Tab) 250 mg BID PO 09/17/16 09:00 10/17/16 08:59 09/17/16 21:33 250 MG Propranolol HCl (Inderal La Cap) 60 mg DAILY PO 09/17/16 09:00 10/17/16 08:59 09/17/16 07:46 60 MG Rosuvastatin Calcium (Crestor Tab) 10 mg HS PO 09/17/16 21:00 10/17/16 20:59 09/17/16 21:33 10 MG Citalopram Hydrobromide (celeXA TAB) 10 mg QAM PO 09/17/16 09:00 10/17/16 08:59 09/17/16 07:45 10 MG Phenazopyridine HCl (Pyridium Tab) 100 mg TID PO 09/17/16 09:00 09/19/16 08:59 09/17/16 21:33 100 MG Ceftriaxone Sodium 1 gm/ Dextrose 50 ml @ 100 mls/hr Q24H IV 09/17/16 00:00 09/24/16 00:00 09/17/16 00:26 100 MLS/HR Azithromycin 500 mg/Dextrose 255 ml @ 125 mls/hr Q24H IV 09/17/16 01:00 09/24/16 00:59 09/17/16 01:10 125 MLS/HR Ergocalciferol (Vitamin D Cap) 50,000 interunit Q4D PO 09/17/16 00:45 10/31/16 00:46 09/17/16 01:27 50,000 INTERUNIT
[2016-09-18] VITALS (9 sets, daily range): BP systolic 89–123; BP diastolic 56–73; PULSE 68–76; TEMP 36.3–37.1; O2SAT 91–93
[2016-09-18] MEDS: AZITHROMYCIN IV 500 MG in DEXTROSE 5% 250ML 250 ML IV SCH (00:02)
[2016-09-18] MEDS: SODIUM CHLORIDE 0.9% 1000ML 1,000 ML IV SCH ×2 (01:22→11:15)
[2016-09-18 06:03] LABS: HEMATOCRIT 32.3 % (37-47); MEAN CELL VOLUME 93.9 fL (80-100); MEAN CORPUSCULAR HEMOGLOBIN 30.5 pg (25-34); MEAN CORPUSCULAR HGB CONC 32.5 g/dl (32-36); MEAN PLATELET VOLUME 9.4 fL (7.4-10.4); PLATELET COUNT 427 K/uL (130-400); RED BLOOD COUNT 3.44 M/uL (4.2-5.4); WHITE BLOOD COUNT 12.74 K/uL (4.8-10.8)
[2016-09-18] MEDS: HEPARIN SOD 5000 UNIT/0.5 ML CARP SQ SCH ×3 (06:08→21:06)
[2016-09-18 06:40] LABS: CALCIUM 7.4 mg/dl (8.5-10.1); CREATININE 0.57 mg/dl (0.60-1.20); POTASSIUM 3.5 mmol/L (3.5-5.1)
[2016-09-18] MEDS: PRIMIDONE 250 MG TAB PO SCH ×2 (07:59→21:01)
[2016-09-18] MEDS: CITALOPRAM 20 MG TAB PO SCH (07:59)
[2016-09-18] MEDS: ASPIRIN 81 MG ECTAB PO SCH (07:59)
[2016-09-18] MEDS: PROPRANOLOL HCL 60 MG LA CAP PO SCH (07:59)
[2016-09-18] MEDS: PHENAZOPYRIDINE HCL 100 MG TAB PO SCH ×3 (07:59→21:01)
[2016-09-18] MEDS: NICOTINE 21 MG/24 HR TDSY TD SCH (07:59)
[2016-09-18] MEDS ORDERED: COUGH DROP (SUGAR FREE) LOZ 24 LOZ/1 BOX ONE (08:02)
--- NOTE | 2016-09-18 15:45 | DIAGNOSTIC IMAGING REPORT ---
CHEST CT WITH CONTRAST CT DOSE: 212.72 mGy.cm HISTORY: abnormal chest x-ray, smoker TECHNIQUE: Multiaxial CT images of the chest were performed following the intravenous administration of contrast. COMPARISON: Chest 09/16/2016. FINDINGS: Within the periphery of the right upper lobe there is a wedge-shaped 4 cm area of dense consolidation. This contains a 2.5 cm cystic areas suggestive of necrosis. This abuts the pleural service but does not invade into the chest wall. There is also a nearly identical wedge-shaped area of consolidation seen within the right lower lobe which also contains a 1.7 cm area of central necrosis. Small right and trace left pleural effusions. Mild emphysema. Old, healed right-sided rib fractures. The visualized liver and spleen are unremarkable. Mild thickening of the bilateral adrenal glands. No mediastinal or hilar lymphadenopathy. The heart is normal in size. Mild narrowing within the proximal left subclavian artery due to the calcified plaque. Normal caliber thoracic aorta. The pulmonary arteries appear patent. IMPRESSION: 1. Nearly identical wedge-shaped areas of consolidation within the right upper lobe and right lower lobe as described above. These demonstrate focal central areas of necrosis. Therefore, these favor areas of a necrotizing multifocal pneumonia and could represent a tuberculosis. Neoplasm could also have a similar appearance but is considered less likely given the multifocal appearance. Bronchoscopy and or follow-up chest CT is recommended to ensure resolution. 2. Small right and trace left pleural effusions. Electronically signed by: Radu Matthew M.D. 09/18/2016 3:28 PM Dictated Date/Time: 09/18/2016 3:20 PM
[2016-09-18] MEDS ORDERED: TUBERCULIN SKIN TEST 5 TU in SYRINGE 0 ML ID SCH (16:15)
--- NOTE | 2016-09-18 17:45 | Progress Note ---
Medicine Progress Note Date & Time of Visit: Sep 18, 2016 at 11:10 . Subjective Feels well. Hoping to go home. No fever or chills. Minimal nonproductive cough, no shortness of breath. No chest pain. No nausea, vomiting, diarrhea. No dysuria. . Objective Last 8 Hrs Date Time Temp Pulse Resp B/P (MAP) Pulse Ox O2 Delivery O2 Flow Rate FiO2 09/18/16 16:07 36.3 70 18 104/64 (77) 92 Room Air 09/18/16 16:00 Room Air 09/18/16 15:23 36.8 76 17 92 09/18/16 14:53 36.8 76 17 105/66 (79) 92 Room Air 09/18/16 12:01 93 Room Air 09/18/16 10:49 36.8 68 20 89/56 (67) 91 Nasal Cannula 2.0 Physical Exam: General- sitting in chair, no distress Neck- no JVD Lungs- few rales right base Heart- regular Abdomen- + BS, soft, nontender Extremities- no pretibial edema or calf tenderness Neuro- alert, oriented . Laboratory Results: Last 24 Hours Test 09/18/16 05:20 White Blood Count 12.74 K/uL Red Blood Count 3.44 M/uL Hemoglobin 10.5 g/dL Hematocrit 32.3 % Mean Corpuscular Volume 93.9 fL Mean Corpuscular Hemoglobin 30.5 pg Mean Corpuscular Hemoglobin Concent 32.5 g/dl RDW Standard Deviation 50.0 fL RDW Coefficient of Variation 14.5 % Platelet Count 427 K/uL Mean Platelet Volume 9.4 fL Sodium Level 139 mmol/L Potassium Level 3.5 mmol/L Chloride Level 103 mmol/L Carbon Dioxide Level 29 mmol/L Anion Gap 7.0 mmol/L Blood Urea Nitrogen 11 mg/dl Creatinine 0.57 mg/dl Est Creatinine Clear Calc Drug Dose 73.8 ml/min Estimated GFR () 107.3 Estimated GFR (Non- 92.6 BUN/Creatinine Ratio 19.0 Random Glucose 86 mg/dl Calcium Level 7.4 mg/dl Assessment & Plan UTI Urine culture grew Escherichia coli, pansensitive. Receiving ceftriaxone. POSSIBLE PNEUMONIA / ABNORMAL CHEST X-RAY Chest x-ray demonstrated right upper lobe and right lower lobe densities. Smoker. Occasional cough, no hemoptysis. Receiving azithromycin and ceftriaxone for possible community-acquired pneumonia. Check CT of chest with contrast for more complete imaging. DEHYDRATION Received IV fluids with improvement. CEREBROVASCULAR DISEASE Old strokes noted on CT scan. Continue aspirin and rosuvastatin. Smoking cessation counseling. ESSENTIAL TREMOR Continue propranolol and primidone. SMOKING Smoking cessation counseling. DEPRESSION Continue citalopram. GENERALIZED WEAKNESS Patient unable to help herself out of bathtub for 3 days. Generalized weakness probably multifactorial. PT/OT. VTE PROPHYLAXIS Moderate to high risk for VTE. SQ heparin. Ambulate. DISPOSITION To be determined. May benefit from inpatient rehabilitation or skilled care. Family Medicine follow-up with Dr. Narvaez. . ADDENDUM: CT of chest performed this afternoon. Report per Radiology: FINDINGS: Within the periphery of the right upper lobe there is a wedge-shaped 4 cm area of dense consolidation. This contains a 2.5 cm cystic areas suggestive of necrosis. This abuts the pleural service but does not invade into the chest wall. There is also a nearly identical wedge-shaped area of consolidation seen within the right lower lobe which also contains a 1.7 cm area of central necrosis. Small right and trace left pleural effusions. Mild emphysema. Old, healed right-sided rib fractures. The visualized liver and spleen are unremarkable. Mild thickening of the bilateral adrenal glands. No mediastinal or hilar lymphadenopathy. The heart is normal in size. Mild narrowing within the proximal left subclavian artery due to the calcified plaque. Normal caliber thoracic aorta. The pulmonary arteries appear patent. IMPRESSION: 1. Nearly identical wedge-shaped areas of consolidation within the right upper lobe and right lower lobe as described above. These demonstrate focal central areas of necrosis. Therefore, these favor areas of a necrotizing multifocal pneumonia and could represent a tuberculosis. Neoplasm could also have a similar appearance but is considered less likely given the multifocal appearance. Bronchoscopy and or follow-up chest CT is recommended to ensure resolution. 2. Small right and trace left pleural effusions. Electronically signed by: Radu Matthew M.D. 09/18/2016 3:28 PM Airborne precautions ordered. Check PPD, QuantiFERON, sputum AFB. Consult Pulmonary Medicine. Patient informed of findings. Daughter notified by phone. Granddaughter is a nurse and was given update by phone as well. Will change antibiotic therapy to vancomycin to cover staph, including MRSA, and piperacillin/tazobactam to cover gram-negative bacilli and anaerobes. Will not start anti-TB meds at this time, pending further data and input from Pulmonary Medicine. . . Procedures: cardiac monitoring intravenous fluids intravenous medications CT head CT chest . Current Inpatient Medications: Current Inpatient Medications Medications (Trade) Dose Ordered Sig/Paula Route Start Time Stop Time Status Last Admin Dose Admin Heparin Sodium (Porcine) (Heparin Sq 5000 Unit/0.5ml) 5,000 unit Q8 SQ 09/17/16 08:00 10/17/16 07:59 09/18/16 13:22 5,000 UNIT Acetaminophen (Tylenol Tab) 650 mg Q4H PRN PO 09/16/16 22:45 10/16/16 22:44 Ondansetron HCl (Zofran Inj) 4 mg Q6H PRN IV 09/16/16 22:45 10/16/16 22:44 Polyethylene (Miralax Powder Packet) 17 gm DAILY PRN PO 09/16/16 22:45 10/16/16 22:44 09/18/16 08:03 17 GM Nicotine (Nicoderm Cq 21MG Patch) 1 patch DAILY@0900 TD 09/17/16 09:00 10/17/16 08:59 09/18/16 07:59 1 PATCH Miscellaneous (Remove Nicoderm Patch) 1 ea DAILY@2100 N/A 09/17/16 21:00 10/17/16 20:59 09/17/16 21:00 1 EA Aspirin (Ecotrin Tab) 81 mg DAILY PO 09/17/16 09:00 10/17/16 08:59 09/18/16 07:59 81 MG Primidone (Mysoline Tab) 250 mg BID PO 09/17/16 09:00 10/17/16 08:59 09/18/16 07:59 250 MG Propranolol HCl (Inderal La Cap) 60 mg DAILY PO 09/17/16 09:00 10/17/16 08:59 09/18/16 07:59 60 MG Rosuvastatin Calcium (Crestor Tab) 10 mg HS PO 09/17/16 21:00 10/17/16 20:59 09/17/16 21:33 10 MG Citalopram Hydrobromide (celeXA TAB) 10 mg QAM PO 09/17/16 09:00 10/17/16 08:59 09/18/16 07:59 10 MG Phenazopyridine HCl (Pyridium Tab) 100 mg TID PO 09/17/16 09:00 09/19/16 08:59 09/18/16 13:18 100 MG Ergocalciferol (Vitamin D Cap) 50,000 interunit Q4D PO 09/17/16 00:45 10/31/16 00:46 09/17/16 01:27 50,000 INTERUNIT Sodium Chloride 1,000 ml @ 100 mls/hr Q10H IV 09/18/16 01:15 10/18/16 01:14 09/18/16 11:15 100 MLS/HR Miscellaneous (Ppd Check) 1 ea Q48H ONCE N/A 09/20/16 16:00 09/20/16 16:01 Potassium Chloride/Sodium Chloride 1,000 ml @ 125 mls/hr Q8H IV 09/18/16 17:45 10/18/16 17:44 UNV Vancomycin HCl 1000 mg/Sodium Chloride 270 ml @ 125 mls/hr NOW STAT IV 09/18/16 17:32 09/18/16 19:41 UNV Piperacillin Sod/ Tazobactam Sod 4.5 gm/Dextrose 120 ml @ 200 mls/hr Q6H IV 09/18/16 17:45 09/25/16 17:44 UNV Azithromycin (Zithromax Tab) 500 mg QAM PO 09/19/16 09:00 09/26/16 08:59 UNV
[2016-09-18] MEDS ORDERED: PIPERACILL/TAZOBAC IV 4.5 GM in DEXTROSE 5% 100ML 100 ML IV SCH (18:00)
[2016-09-18] MEDS ORDERED: PIPERACILL/TAZOBAC CONSULT ACTIVE PRN (18:15)
[2016-09-18] MEDS ORDERED: VANCOMYCIN CONSULT ACTIVE PRN (18:15)
[2016-09-18] MEDS ORDERED: VANCOMYCIN INJ 1,500 MG in SODIUM CHLORIDE 0.9% 500ML 500 ML IV SCH (18:30)
[2016-09-18] MEDS: NSS + 20MEQ KCL 1000ML 1,000 ML IV SCH (18:33)
[2016-09-18] MEDS ORDERED: NURSING VERBAL MED ORDER ONE (20:15)
[2016-09-18] MEDS: ROSUVASTATIN CALCIUM 10 MG TAB PO SCH (21:01)
--- NOTE | 2016-09-18 22:13 | Pharmacy Progress Note ---
Pharmacy Antibiotic Consult Date of Service: Sep 18, 2016. Pharmacy Dosing Scope Pharmacy is consulted to initiate vancomycin and Zosyn IV dosing therapy, order appropriate labs and adjust drug dose/frequency. Subjective The patient is a 70 year old female admitted on Sep 16, 2016 at 21:00. Objective Height (Feet): 5 Height (Inches): 3.00 Weight (Kilograms): 59.100 Lab Results (24hrs): Test 09/18/16 05:20 White Blood Count 12.74 K/uL (4.8-10.8) Red Blood Count 3.44 M/uL (4.2-5.4) Hemoglobin 10.5 g/dL (12.0-16.0) Hematocrit 32.3 % (37-47) Mean Corpuscular Volume 93.9 fL (80-100) Mean Corpuscular Hemoglobin 30.5 pg (25-34) Mean Corpuscular Hemoglobin Concent 32.5 g/dl (32-36) RDW Standard Deviation 50.0 fL (36.4-46.3) RDW Coefficient of Variation 14.5 % (11.5-14.5) Platelet Count 427 K/uL (130-400) Mean Platelet Volume 9.4 fL (7.4-10.4) Sodium Level 139 mmol/L (136-145) Potassium Level 3.5 mmol/L (3.5-5.1) Chloride Level 103 mmol/L (98-107) Carbon Dioxide Level 29 mmol/L (21-32) Anion Gap 7.0 mmol/L (3-11) Blood Urea Nitrogen 11 mg/dl (7-18) Creatinine 0.57 mg/dl (0.60-1.20) Est Creatinine Clear Calc Drug Dose 73.8 ml/min Estimated GFR () 107.3 Estimated GFR (Non- 92.6 BUN/Creatinine Ratio 19.0 (10-20) Random Glucose 86 mg/dl (70-99) Calcium Level 7.4 mg/dl (8.5-10.1) Micro Results: 09/16 cath urine- E.coli, pansensitive 09/16 blood x2 NGTD 09/18 nasal swab pending Recent Pertinent Medications Item Value Date Time Vancomycin HCl 267 ml @ 125 mls/hr 09/19/16 0600 850 mg/Sodium Q12@0600,1800/IV Chloride Piperacillin Sod/ 120 ml @ 30 mls/hr 09/19/16 0000 Tazobactam Sod Q8@0000,0800,1600/IV 4.5 gm/Dextrose Vancomycin HCl 530 ml @ 200 mls/hr 09/18/16 1830 1500 mg/Sodium TODAY@1830/IV 09/18/16 1840 Chloride Azithromycin 500 255 ml @ 125 mls/hr 09/17/16 0100 mg/Dextrose Q24H/IV 09/18/16 0002 Ceftriaxone 50 ml @ 100 mls/hr 09/17/16 0000 Sodium 1 gm/ Q24H/IV 09/17/16 2334 Dextrose Piperacillin Sod/ 120 ml @ 200 mls/hr 09/18/16 1800 Tazobactam Sod Q6H/IV 4.5 gm/Dextrose Azithromycin 500 mg 09/19/16 0900 (Zithromax Tab) QAM/PO Assessment & Plan Loading dose: vancomycin 1500 mg IV X 1 dose (~ 25 mg/kg) then: vancomycin 850 mg IV every 12 hours. Goal peak level estimate: between 25-40 mcg/mL. Goal trough level estimate: between 15-20 mcg/mL. for HCAP Trough has been ordered for: 09/20 before 0600 dose. Zosyn 4.5 Gm (IV infused over 4 hr) every 8 hr for CrCl greater than 30 ml/min Pharmacy will continue to follow and will adjust dose/frequency as necessary. Thank you
[2016-09-18] MEDS: PIPERACILL/TAZOBAC IV 4.5 GM in DEXTROSE 5% 100ML 100 ML IV SCH (23:53)
[2016-09-19] MEDS: NSS + 20MEQ KCL 1000ML 1,000 ML IV SCH ×2 (01:58→09:46)
[2016-09-19] MEDS: HEPARIN SOD 5000 UNIT/0.5 ML CARP SQ SCH ×2 (05:44→13:50)
[2016-09-19] MEDS ORDERED: VANCOMYCIN INJ 850 MG in SODIUM CHLORIDE 0.9% 250ML 250 ML IV SCH (06:00)
[2016-09-19 07:43] VITALS: BP 115/67; PULSE 77; TEMP 36.9; O2SAT 94
[2016-09-19 07:46] LABS: HEMATOCRIT 34.9 % (37-47); MEAN CELL VOLUME 96.1 fL (80-100); MEAN CORPUSCULAR HEMOGLOBIN 31.7 pg (25-34); MEAN PLATELET VOLUME 9.5 fL (7.4-10.4); PLATELET COUNT 442 K/uL (130-400); RED BLOOD COUNT 3.63 M/uL (4.2-5.4); WHITE BLOOD COUNT 11.02 K/uL (4.8-10.8)
[2016-09-19 08:16] LABS: BUN/CREATININE RATIO 8.8 (10-20); CREATININE 0.66 mg/dl (0.60-1.20); POTASSIUM 4.1 mmol/L (3.5-5.1)
[2016-09-19 08:23] LABS: CALCIUM 7.8 mg/dl (8.5-10.1)
[2016-09-19] MEDS: NICOTINE 21 MG/24 HR TDSY TD SCH (08:47)
[2016-09-19] MEDS: PIPERACILL/TAZOBAC IV 4.5 GM in DEXTROSE 5% 100ML 100 ML IV SCH ×3 (08:47→23:43)
[2016-09-19] MEDS: ASPIRIN 81 MG ECTAB PO SCH (08:48)
[2016-09-19] MEDS: PROPRANOLOL HCL 60 MG LA CAP PO SCH (08:48)
[2016-09-19] MEDS: AZITHROMYCIN 250 MG TAB PO SCH (08:48)
[2016-09-19] MEDS: CITALOPRAM 20 MG TAB PO SCH (08:48)
[2016-09-19] MEDS: PRIMIDONE 250 MG TAB PO SCH ×2 (08:48→20:56)
--- NOTE | 2016-09-19 10:55 | Pulmonary Consultation ---
History General Date of Service: Sep 19, 2016. Stated Complaint: Lung masses and tuberculosis HPI The patient is a 70 year old female who presents to [facility] with complaints of Pneumonia. The patient's primary care provider is Isha Narvaez M.D.. 70 year old female admitted with progressive global weakness, productive cough/ CAP, UTI and dehydration. The patient was trapped in her bathtub over the last three days secondary to weakness. The patient has been treated for CAP, UTI, depression and work-up noted two large infiltrated on CXR in the RUL and RLL. Follow-up contrast CT of the thorax demonstrated a RUL and RLL wedge shaped masses both with central regions of necrosis. The patient I spoke at length about her possible TB history. She does note that her son was a airline station agent in [facility] but has never been diagnosed with TB or latent TB. 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 Once again the patient has never been treated for latent tuberculosis. She does continue to smoke and has greater than [id number] history. Patient does not history of brown productive sputum on arrival and currently little amount of sputum production which is only white and thin in its characteristics. Denies: urinary urgency, flank pain, pelvic or abdominal pain, fevers, chills, pleurisy, cardiac chest pain, weight loss, night sweats, hemoptysis or chronic cough Chronic issues: constipation Work-Up: Urine (09/16/16) E-Coli EKG (09/16/13) WNL WBC [id number] PLT [id number] INR 1.1 PT 11.9 BUN/Cr 30/1.10 ALB 2.4 Globulin 5.[address] Thorax (09/18/16) RUL and RLL necrotic wedge shaped masses No mediastinal or hilar adenopathy noted Trace right pleural effusion Previous Work-Up: Urine (03/18/14) Klebsiella Pneumonia EKG (03/18/14) WNL Treatment: 1) Azithromycin (day 2 of 5) 2) Ceftriaxone (ED) 3) Vancomycin (day 2 of 7) 4) Zosyn (day 2 of 7) 5) Nicotine Patch 6) ASA 81mg Review of Systems Constitutional: reports: malaise, weakness Eyes: reports: no symptoms ENT: reports: no symptoms Cardiovascular: reports: no symptoms Respiratory: reports: cough Gastrointestinal: reports: constipation, other (possible aspiration) Genitourinary - Female: reports: no symptoms Musculoskeletal: reports: no symptoms Integumentary: reports: no symptoms Neurologic: reports: no symptoms Psychiatric: reports: no symptoms Endocrine: no symptoms Hematologic / Lymphatic: no symptoms Allergic / Immunologic: no symptoms Past Medical History Past Medical History: 1) Essential Tremor 2) Falls 3) Wrist Fx 4) Carotid Stenosis 5) HTN 6) Hyperlipidemia 7) Osteoporosis 8) CVA 9) positive PPD Past Surgical History: Patient notes not Family History Cancer MOTHER (BREAST CANCER) Diabetes mellitus Hypertension Breast Ca DM HTN Social History Smoking Status: Current Every Day Smoker Alcohol Use: none Marital Status: single Housing status: lives alone Occupational Status: retired Smoking Status: Current Every Day Smoker Marital status: single Housing status: lives alone Occupational Status: retired Immunizations History of Influenza Vaccine: Yes Influenza Vaccine Date: Feb 21, 2014 History of Tetanus Vaccine?: Unknown History of Pneumococcal: Yes Pneumococcal Date: Jun 10, 2016 History of Hepatitis B Vaccine: No History of MDRO History of MDRO: No Allergies Coded Allergies: Atorvastatin (Verified Allergy, Unknown, Unstable, 09/16/16) Current Medications Reported Home Medications Medications Dose Route/Sig Max Daily Dose Days Date Category Advil (Ibuprofen) 200 Mg Tab 200 Mg PO 09/16/16 Reported Citalopram Hydrobromide 10 Mg Tab 1 Tab PO DAILY 09/16/16 Reported Aspirin 81 (Aspirin) 81 Mg Tab 81 Mg PO DAILY 03/18/14 Reported Crestor (Rosuvastatin Calcium) 10 Mg Tab 10 Mg PO HS 03/18/14 Reported Propranolol ER (Propranolol Hcl) 60 Mg Capcr 60 Mg PO DAILY 03/18/14 Reported Mysoline (Primidone) 250 Mg Tab 1 Tab PO BID 03/18/14 Reported Physical Physical Exam Vital Signs: Date Time Temp Pulse Resp B/P (MAP) Pulse Ox O2 Delivery O2 Flow Rate FiO2 09/19/16 07:43 36.9 77 16 115/67 (83) 94 Room Air 09/19/16 00:00 Room Air 09/18/16 22:46 36.4 71 16 123/73 (90) 91 Room Air 09/18/16 16:07 36.3 70 18 104/64 (77) 92 Room Air 09/18/16 16:00 Room Air 09/18/16 15:23 36.8 76 17 92 09/18/16 14:53 36.8 76 17 105/66 (79) 92 Room Air 09/18/16 12:01 93 Room Air 09/18/16 10:49 36.8 68 20 89/56 (67) 91 Nasal Cannula 2.0 General Appearance: NO APPARENT DISTRESS Head: NORMOCEPHALIC, ATRAUMATIC Eyes: PERRLA, NO DISCHARGE, EOMI, SCLERAE NORMAL, CONJUNCTIVAE NORMAL ENT: NORMAL EAR EXAM, NORMAL NASAL EXAM, NORMAL MOUTH EXAM, NORMAL THROAT EXAM , NORMAL DENTAL EXAM, NORMAL SINUS EXAM Neck: NORMAL RANGE OF MOTION, NO TENDERNESS, TRACHEA MIDLINE, NO STRIDOR, SUPPLE Respiratory: other (decreased breath sounds bilaterally no active wheezing noted) Cardiovasular: other (S1-S2 regular rate and rhythm distant heart sounds unable to auscultate for murmurs rubs or gallops) Abdomen: NON TENDER, NORMAL BOWEL SOUNDS, NO REBOUND, NO MASSES, NO GUARDING, NO ORGANOMEGALY Genitourinary - Female: EXTERNAL GENITALIA NORMAL Back: other (severe kyphoscoliosis noted tenderness to palpation) Upper Extremities: NO EDEMA, NO DEFORMITY, NORMAL ROM Lower Extremities: NO DEFORMITY, NORMAL ROM Edema: RLE Pulses: carotid (R) (1+), carotid (L) (1+), dorsalis pedis (R) (1+), dorsalis pedis (L) (1+) Reflexes: biceps (R) (2+), bicpes (L) (2+), achilles (R) (1+), achilles (L) (1+ ) Babinski Testing: right (downgoing), left (downgoing) Psychiatric: NORMAL AFFECT, NO SUICIDAL IDEATION Diagnostics Labs Results Past 24 Hours Test 09/19/16 07:25 Range/Units White Blood Count 11.02 4.8-10.8 K/uL Red Blood Count 3.63 4.2-5.4 M/uL Hemoglobin 11.5 12.0-16.0 g/dL Hematocrit 34.9 37-47 % Mean Corpuscular Volume 96.1 80-100 fL Mean Corpuscular Hemoglobin 31.7 25-34 pg Mean Corpuscular Hemoglobin Concent 33.0 32-36 g/dl RDW Standard Deviation 52.7 36.4-46.3 fL RDW Coefficient of Variation 14.8 11.5-14.5 % Platelet Count 442 130-400 K/uL Mean Platelet Volume 9.5 7.4-10.4 fL Sodium Level 140 136-145 mmol/L Potassium Level 4.1 3.5-5.1 mmol/L Chloride Level 104 98-107 mmol/L Carbon Dioxide Level 27 21-32 mmol/L Anion Gap 9.0 3-11 mmol/L Blood Urea Nitrogen 6 7-18 mg/dl Creatinine 0.66 0.60-1.20 mg/dl Est Creatinine Clear Calc Drug Dose 63.7 ml/min Estimated GFR () 102.3 Estimated GFR (Non- 88.3 BUN/Creatinine Ratio 8.8 10-20 Random Glucose 76 70-99 mg/dl Calcium Level 7.8 8.5-10.1 mg/dl Microbiology Results 09/18/16 MRSA DNA Surveillance Screen - Final, Complete Specimen Negative for MRSA by DNA Probe Diagnostic Radiology Contrast CT Thorax (09/18/16) RUL and RLL necrotic wedge shaped masses No mediastinal or hilar adenopathy noted Trace right pleural effusion Chest x-ray: Right upper lobe right lower lobe opacifications notably pleural- based EKG Interpretation: NORMAL EKG Impression Assessment and Plan 70-year-old female being seen for pulmonary masses and possible tuberculosis: #1 tuberculosis: Patient does have a long history of positive PPD with no clinical signs or symptoms chronically consistent with tuberculosis. She does have exposure from previous longterm work as well as possibly from her son who is a poor patroller in [facility] and currently works for the [employer] in [place]. I've asked the patient to follow-up with her son to see if he's ever been diagnosed with either TB and/or latent TB and if so has he ever gone undergone treatment. I cannot definitively say this patient does not have active tuberculosis but I do think she is a low risk. We'll continue to follow up to see if the patient can produce sputum but as she has received azithromycin performed bronchoscopy at this time would not be sensitive enough to rule out active TB. 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 #2 lung masses: Patient is a chronic history of smoking so possibility of lung malignancy is moderate to high. As there is no signs of mediastinal lymphadenopathy metastases from the right upper to the right lower lobe would be a low probability and 2 primaries also has low probability. Cannot definitively rule out cancer and less biopsies obtained the patient would like to continue with antibiotic treatment at this time and follow-up with CAT scan in 6 weeks for further evaluation. I believe continuing with current antibiotic course for aspiration is appropriate at this time as the patient does note intermittent episodes of aspiration while drinking thin liquids. Once patient is out of isolation suggest we perform swallow evaluation at that time.
[2016-09-19 13:07] LABS: LEGIONELLA ANTIGEN NOT DETECTED (NOT DETECTED)
[2016-09-19 15:16] VITALS: BP 108/63; PULSE 74; TEMP 37; O2SAT 92
[2016-09-19 16:00] VITALS: O2SAT 92
--- NOTE | 2016-09-19 19:28 | DIAGNOSTIC IMAGING REPORT ---
BILATERAL LOWER EXTREMITY VENOUS DOPPLER HISTORY: Pain. Edema. edema COMPARISON STUDY: None. FINDINGS: No flow is identified within the right posterior tibial vein. Compressibility is incomplete. All remaining venous structures the right leg are unremarkable. Venous flow within the left peroneal vein is inconsistent. All remaining venous structures of the left leg are unremarkable. IMPRESSION: 1. Findings consistent with bilateral deep venous thrombosis. 2. Complete occlusion right posterior tibial vein, with partial involvement of the left peroneal vein. Electronically signed by: Jj Mcclellan M.D. 09/19/2016 7:26 PM Dictated Date/Time: 09/19/2016 7:24 PM
[2016-09-19] MEDS ORDERED: HEPARIN IV LOW DOSE NO BOLUS SCH (20:00)
[2016-09-19] MEDS ORDERED: HEPARIN 25,000 UNIT/500ML D5W 500 ML IV PRN (20:30)
[2016-09-19] MEDS: ROSUVASTATIN CALCIUM 10 MG TAB PO SCH (20:56)
[2016-09-19] MEDS: HEPARIN 25,000 UNIT/500ML D5W 500 ML IV PRN (20:59)
--- NOTE | 2016-09-19 23:07 | Progress Note ---
Medicine Progress Note Date & Time of Visit: Sep 19, 2016 at ~ 16:00 . Subjective No fever. Mild cough, minimally productive. No SOB. No chest pain. No nausea, vomiting, diarrhea. No urinary symptoms. . Objective Last 8 Hrs Date Time Temp Pulse Resp B/P (MAP) Pulse Ox O2 Delivery O2 Flow Rate FiO2 09/19/16 16:00 92 Room Air 09/19/16 15:16 37.0 74 16 108/63 (78) 92 Room Air Physical Exam: General- no distress Neck- no JVD Lungs- essentially clear Heart- regular Abdomen- + BS, soft, nontender Extremities- 1-2+ left pretibial edema; 1+ right pretibial edema Neuro- alert, oriented . Laboratory Results: Last 24 Hours Test 09/19/16 07:25 White Blood Count 11.02 K/uL Red Blood Count 3.63 M/uL Hemoglobin 11.5 g/dL Hematocrit 34.9 % Mean Corpuscular Volume 96.1 fL Mean Corpuscular Hemoglobin 31.7 pg Mean Corpuscular Hemoglobin Concent 33.0 g/dl RDW Standard Deviation 52.7 fL RDW Coefficient of Variation 14.8 % Platelet Count 442 K/uL Mean Platelet Volume 9.5 fL Sodium Level 140 mmol/L Potassium Level 4.1 mmol/L Chloride Level 104 mmol/L Carbon Dioxide Level 27 mmol/L Anion Gap 9.0 mmol/L Blood Urea Nitrogen 6 mg/dl Creatinine 0.66 mg/dl Est Creatinine Clear Calc Drug Dose 63.7 ml/min Estimated GFR () 102.3 Estimated GFR (Non- 88.3 BUN/Creatinine Ratio 8.8 Random Glucose 76 mg/dl Calcium Level 7.8 mg/dl Assessment & Plan UTI Urine culture grew Escherichia coli, pansensitive. Receiving ceftriaxone. POSSIBLE PNEUMONIA / ABNORMAL CHEST X-RAY Chest x-ray demonstrated right upper lobe and right lower lobe densities. Smoker. Occasional cough, no hemoptysis. Received azithromycin and ceftriaxone for possible community-acquired pneumonia. CT of chest demonstrated RUL and RLL densities with necrosis. Placed in airborne precautions. Antibiotic coverage changed to azithromycin, vancomycin, piperacillin / tazo. Pulmonary Medicine consulted. DEHYDRATION Received IV fluids with improvement. CEREBROVASCULAR DISEASE Old strokes noted on CT scan. Continue aspirin and rosuvastatin. Smoking cessation counseling. ESSENTIAL TREMOR Continue propranolol and primidone. SMOKING Smoking cessation counseling. DEPRESSION Continue citalopram. GENERALIZED WEAKNESS Patient unable to help herself out of bathtub for 3 days. Generalized weakness probably multifactorial. PT/OT. VTE PROPHYLAXIS Moderate to high risk for VTE. SQ heparin. Ambulate. DISPOSITION To be determined. May benefit from inpatient rehabilitation or skilled care. Family Medicine follow-up with Dr. Narvaez. Family visiting and given update. ADDENDUM: Venous duplex lower extremities demonstrated bilat calf vein thromboses. Was receiving SQ heparin for prophylaxis; change to IV heparin low dose protocol. Patient and family informed. . Consultants: Pulmonary Medicine . Procedures: cardiac monitoring intravenous fluids intravenous medications CT head CT chest . Current Inpatient Medications: Current Inpatient Medications Medications (Trade) Dose Ordered Sig/Paula Route Start Time Stop Time Status Last Admin Dose Admin Acetaminophen (Tylenol Tab) 650 mg Q4H PRN PO 09/16/16 22:45 10/16/16 22:44 Ondansetron HCl (Zofran Inj) 4 mg Q6H PRN IV 09/16/16 22:45 10/16/16 22:44 Polyethylene (Miralax Powder Packet) 17 gm DAILY PRN PO 09/16/16 22:45 10/16/16 22:44 09/18/16 08:03 17 GM Nicotine (Nicoderm Cq 21MG Patch) 1 patch DAILY@0900 TD 09/17/16 09:00 10/17/16 08:59 09/19/16 08:47 1 PATCH Miscellaneous (Remove Nicoderm Patch) 1 ea DAILY@2100 N/A 09/17/16 21:00 10/17/16 20:59 09/19/16 20:57 1 EA Aspirin (Ecotrin Tab) 81 mg DAILY PO 09/17/16 09:00 10/17/16 08:59 09/19/16 08:48 81 MG Primidone (Mysoline Tab) 250 mg BID PO 09/17/16 09:00 10/17/16 08:59 09/19/16 20:56 250 MG Propranolol HCl (Inderal La Cap) 60 mg DAILY PO 09/17/16 09:00 10/17/16 08:59 09/19/16 08:48 60 MG Rosuvastatin Calcium (Crestor Tab) 10 mg HS PO 09/17/16 21:00 10/17/16 20:59 09/19/16 20:56 10 MG Citalopram Hydrobromide (celeXA TAB) 10 mg QAM PO 09/17/16 09:00 10/17/16 08:59 09/19/16 08:48 10 MG Ergocalciferol (Vitamin D Cap) 50,000 interunit Q4D PO 09/17/16 00:45 10/31/16 00:46 09/17/16 01:27 50,000 INTERUNIT Miscellaneous (Ppd Check) 1 ea Q48H ONCE N/A 09/20/16 16:00 09/20/16 16:01 Azithromycin (Zithromax Tab) 500 mg QAM PO 09/19/16 09:00 09/26/16 08:59 09/19/16 08:48 500 MG Piperacillin Sod/ Tazobactam Sod (Consult) 1 ea UD PRN N/A 09/18/16 18:15 10/18/16 18:14 Piperacillin Sod/ Tazobactam Sod 4.5 gm/Dextrose 120 ml @ 30 mls/hr Q8@0000,0800,1600 IV 09/19/16 00:00 09/26/16 00:00 09/19/16 15:56 30 MLS/HR Heparin Sodium/ Dextrose 500 ml @ 13 mls/hr Q24H PRN IV 09/19/16 20:30 10/19/16 20:29 09/19/16 20:59 13 MLS/HR
[2016-09-19 23:33] VITALS: BP 146/72; PULSE 75; TEMP 36.4; O2SAT 90
[2016-09-20] VITALS (21 sets, daily range): BP systolic 107–177; BP diastolic 61–107; PULSE 69–106; TEMP 36.4–36.9; O2SAT 88–100
[2016-09-20 03:48] LABS: CREATININE 0.59 mg/dl (0.60-1.20)
[2016-09-20 03:53] LABS: PARTIAL THROMBOPLASTIN RATIO 1.9
[2016-09-20] MEDS ORDERED: VANCOMYCIN TROUGH SCH (05:30)
--- NOTE | 2016-09-20 07:28 | History & Physical Bridge Note ---
H&P Re-Evaluation Bridge Note: I have examined the patient, reviewed the History & Physical and in the interval since the performance of the History & Physical I have noted the following changes of clinical significance: No changes noted
--- NOTE | 2016-09-20 07:30 | Procedure Note ---
Pre-Mod Sedation Assessment General Date of Moderate Sedation: Sep 20, 2016. Vital Signs: Vital Signs Past 12 Hours Date Time Temp Pulse Resp B/P (MAP) Pulse Ox O2 Delivery O2 Flow Rate FiO2 09/20/16 07:19 36.9 69 20 127/78 (94) 91 09/20/16 00:00 Room Air 09/19/16 23:33 36.4 75 18 146/72 (96) 90 Room Air Review Cardiovascular: regular rate, rhythm, no edema, no gallop, no JVD Abdomen: normal bowel sounds, non tender, soft, no organomegaly, no pulsatile mass, normal rectal exam Lungs: + rhonchi Pre-Sedation Airway Assessment Oral Cavity: Dental Abnormalities Able to Visualize Vocal Cords: Yes Short Thick Neck: No Hx of Sleep Apnea: No Smoking Status: Current Every Day Smoker Mallampati Classification: Class II ASA Classification: Class II Procedure Planning Contraindications-for Mod Sed: None Yes Notes The planned sedation has been discussed with the patient and consent obtained. I have identified the patient, determined the appropriateness of sedation and have assessed the patient immediately prior to the procedure. All medicine(s) and interventions are by my order.
[2016-09-20] MEDS: CITALOPRAM 20 MG TAB PO SCH (07:51)
[2016-09-20] MEDS: PROPRANOLOL HCL 60 MG LA CAP PO SCH (07:52)
[2016-09-20] MEDS: ASPIRIN 81 MG ECTAB PO SCH (07:52)
[2016-09-20] MEDS: AZITHROMYCIN 250 MG TAB PO SCH (07:52)
[2016-09-20] MEDS: PRIMIDONE 250 MG TAB PO SCH ×2 (07:52→21:19)
[2016-09-20] MEDS: NICOTINE 21 MG/24 HR TDSY TD SCH (07:53)
[2016-09-20] MEDS: PIPERACILL/TAZOBAC IV 4.5 GM in DEXTROSE 5% 100ML 100 ML IV SCH ×2 (07:53→15:57)
--- NOTE | 2016-09-20 10:37 | Bronchoscopy Procedure Note ---
Bronchoscopy Procedure Note Procedure: Bronchoscopy, conscious sedation, Consent: Obtained through the patient placed into the chart Pre-procedural diagnosis: Lung masses r/o TB Post-procedural diagnosis: Lung masses r/o TB Start time: 1015 End time: 1029 Total time: 14 minutes Analgesia: 2% liquid lidocaine: Via nebulizer 4% gel lidocaine: Via right naris 2% liquid lidocaine: Via bronchoscopy Sedation: Versed IV: 3mg Fentanyl IV: 50g Procedure: The Appiphany video bronchoscope was used for this procedure and passed down through the right naris Right naris/posterior naris/posterior oropharynx: Anatomically within normal limits Glottis: Anatomically within normal limits with mucus secretion at the opening cleared easily Vocal cords: Proper abduction and abduction, anatomically within normal limits Subglottis/trachea/Bre: Anatomically within normal limits Right bronchial tree: Right mainstem bronchus: Anatomically within normal limits Right upper lobe: Anatomically within normal limits with moderate mucus secretion at the opening cleared easily Bronchus intermedius: Anatomically within normal limits Right middle lobe: Anatomically within normal limits Right lower lobe: Anatomically within normal limits Findings: No significant findings noted Left bronchial tree: Left mainstem bronchus: Anatomically within normal limits Left upper lobe: Anatomically within normal limits Lingula: Anatomically within normal limits Left lower lobe: Anatomically within normal limits Findings: No significant findings noted Bronchial alveolar lavage: RUL 100cc with 40cc return RLL 80cc with 35cc return EBL: none Complications: mid post-procedure hypoxemia Follow-up: return to room 279
--- NOTE | 2016-09-20 10:39 | Procedure Note ---
Post-Moderate Sedation Plan General Date of Moderate Sedation Sep 20, 2016. Vital Signs: Vital Signs Past 12 Hours Date Time Temp Pulse Resp B/P (MAP) Pulse Ox O2 Delivery O2 Flow Rate FiO2 09/20/16 10:06 36.9 69 20 127/78 91 Room Air 2.0 09/20/16 10:05 89 18 154/76 100 Mask 4.0 09/20/16 08:30 Room Air 09/20/16 07:19 36.9 69 20 127/78 (94) 91 09/20/16 00:00 Room Air 09/19/16 23:33 36.4 75 18 146/72 (96) 90 Room Air Review - Discharge Plan Post Moderate Sedation Plan: On clinical assessment, the patient appears to have tolerated the conscious sedation without mild per-procedural hypoxemia. Continue to monitor at this time then return to her inpatient room when she meets standards.
[2016-09-20] MEDS ORDERED: NURSING VERBAL MED ORDER ONE (10:45)
[2016-09-20] MEDS ORDERED: FENTANYL CITRATE INJ 50 MCG/1 ML 2 ML VIAL IV ONE (11:00)
[2016-09-20] MEDS ORDERED: MIDAZOLAM HCL 5 MG/ML 1 ML VIAL IV ONE (11:00)
[2016-09-20 15:16] LABS: PARTIAL THROMBOPLASTIN RATIO 1.5
[2016-09-20] MEDS ORDERED: HEPARIN IV BOLUS 4,000 UNIT in SYRINGE 0 ML IV ONE (15:45)
[2016-09-20] MEDS ORDERED: PPD CHECK ONE (16:00)
[2016-09-20] MEDS: HEPARIN 25,000 UNIT/500ML D5W 500 ML IV PRN (16:06)
[2016-09-20] MEDS ORDERED: FENTANYL CITRATE 100 MCG 2 ML CARP IV ONE (16:44)
[2016-09-20] MEDS ORDERED: MIDAZOLAM HCL 1 MG/ML 2ML VIAL IV ONE (16:44)
--- NOTE | 2016-09-20 17:53 | Progress Note ---
Medicine Progress Note Date & Time of Visit: Sep 20, 2016 at 17:16. Subjective Pt was seen and examined Sitting in bed with no distress with daughter at bedside Pt said that she feels fine she is very eager to go home tomorrow she refused to go to rehab for PT She continues to cough She denies any chest pain, palpitation, dizziness and sob Objective Last 8 Hrs Date Time Temp Pulse Resp B/P (MAP) Pulse Ox O2 Delivery O2 Flow Rate FiO2 09/20/16 16:00 Nasal Cannula 2.0 09/20/16 15:41 36.4 88 18 156/84 (108) 93 Nasal Cannula 2.0 09/20/16 13:30 80 24 126/76 (93) 88 Room Air 09/20/16 13:00 74 25 115/71 (86) 88 Room Air 09/20/16 12:30 93 27 142/76 (98) 95 Oxyhood 4.0 09/20/16 12:00 36.7 81 29 128/77 (94) 95 Oxyhood 4.0 09/20/16 12:00 Oxyhood 4.0 09/20/16 11:59 36.7 87 32 126/78 (94) 98 Oxyhood 10.0 09/20/16 11:30 36.5 96 22 146/78 95 Mask 15.0 09/20/16 11:21 Mask 09/20/16 11:20 36.5 89 24 152/73 95 Mask 15.0 09/20/16 11:10 36.5 92 26 159/91 94 Mask 15.0 09/20/16 11:00 36.5 92 26 164/86 92 Mask 15.0 09/20/16 10:50 36.5 100 26 157/80 92 Mask 15.0 09/20/16 10:35 92 24 177/99 92 Non-Rebreather 15.0 09/20/16 10:30 85 18 169/83 89 Mask 10.0 09/20/16 10:25 85 18 147/72 95 Mask 8.0 09/20/16 10:20 85 24 160/88 99 Mask 4.0 09/20/16 10:15 106 20 160/90 99 Mask 4.0 09/20/16 10:10 89 18 143/107 100 Mask 4.0 09/20/16 10:06 36.9 69 20 127/78 91 Room Air 2.0 09/20/16 10:05 89 18 154/76 100 Mask 4.0 Physical Exam: General- no acute distress Head- atraumatic Eyes- PERRL, EOMI ENT- oropharynx clear Neck- supple, no JVD Lungs- Decrease breath sound Heart- regular rhythm; no murmur Abdomen- normal bowel sounds, soft Extremities- +LE edema L>R, no calf tenderness Neuro- alert, oriented x 3; PERRL, EOMI; no facial palsy Skin- warm & dry Laboratory Results: Last 24 Hours Test 09/20/16 03:20 09/20/16 14:48 Activated Partial Thromboplast Time 48.3 SECONDS 38.8 SECONDS Partial Thromboplastin Ratio 1.9 1.5 Creatinine 0.59 mg/dl Est Creatinine Clear Calc Drug Dose 71.3 ml/min Estimated GFR () 106.1 Estimated GFR (Non- 91.6 Date/Time Source Procedure Growth Status 09/20/16 07:40 Stool C.difficile Toxin B Gene (PCR) - Final No C. difficile toxin B gene detected Complete 09/20/16 10:41 Bronchial Washings Right Lower Lobe Fungal Smear Pending Received 09/20/16 10:41 Bronchial Washings Right Lower Lobe Fungal Culture Pending Received 09/20/16 10:41 Bronchial Washings Right Upper Lobe Acid Fast Stain Pending Received 09/20/16 10:41 Bronchial Washings Right Upper Lobe Mycobacterial Culture Pending Received 09/20/16 10:41 Bronchial Washings Right Upper Lobe Gram Stain Pending Received 09/20/16 10:41 Bronchial Washings Right Upper Lobe Bronchoalveolar Lavage Culture Pending Received Assessment & Plan UTI Urine culture grew Escherichia coli, pansensitive. already on broad coverage iv Zosyn Monitor CBC POSSIBLE PNEUMONIA / ABNORMAL CHEST X-RAY She is a smoker and has greater than [id number] history Occasional cough, no hemoptysis. Chest x-ray demonstrated right upper lobe and right lower lobe densities. CT of chest demonstrated RUL and RLL densities with necrosis. Received azithromycin and ceftriaxone for possible community-acquired pneumonia. Antibiotic coverage changed to azithromycin, piperacillin / tazo. S/p Bronchoscopy with bronchial lavage performed by Dr. White Put on isolation for now after sputum r/o active TB Quantifron, AFB cx and smear, bronchial culture and cytology pending Case discussed with Dr. White LOW OXYGEN SATURATION Might be her baseline Chronic smoker with greater than [id number] history Mostly has underlying COPD (but was never diagnosed) Will get a 2 step exercise once stable to discharge Continue supplement oxygen to keep O2 sat above 90 % DEHYDRATION Received IVF Stable B/L LE DVT Venous doppler U/S showed bilateral deep venous thrombosis and Complete occlusion right posterior tibial vein, with partial involvement of the left peroneal vein. On heparin drip. Discussed with daughter about anticoagulant with Warfarin and the newest agents. side effects discussed such as GI bleed and intracranial bleeding, bruises. Will consider to switch to Eliquis upon discharge CEREBROVASCULAR DISEASE Old strokes noted on CT scan. Continue aspirin and rosuvastatin. stable ESSENTIAL TREMOR Continue propranolol and primidone. SMOKING Smoking cessation counseling. DEPRESSION Continue citalopram. GENERALIZED WEAKNESSs. Generalized weakness probably multifactorial. was in the bathtub for 3 days refused to go to rehab for PT Continue PT/OT. VTE PROPHYLAXIS On heparin drip for DVT DISPOSITION May benefit from inpatient rehabilitation or skilled care. Refused to go to Rehab Updated daughter about her [facility]'s course Family Medicine follow-up with Dr. Narvaez. Consultants: Pulmonary Medicine . Procedures: cardiac monitoring intravenous fluids intravenous medications CT head CT chest . Current Inpatient Medications: Current Inpatient Medications Medications (Trade) Dose Ordered Sig/Paula Route Start Time Stop Time Status Last Admin Dose Admin Acetaminophen (Tylenol Tab) 650 mg Q4H PRN PO 09/16/16 22:45 10/16/16 22:44 Ondansetron HCl (Zofran Inj) 4 mg Q6H PRN IV 09/16/16 22:45 10/16/16 22:44 Polyethylene (Miralax Powder Packet) 17 gm DAILY PRN PO 09/16/16 22:45 10/16/16 22:44 09/18/16 08:03 17 GM Nicotine (Nicoderm Cq 21MG Patch) 1 patch DAILY@0900 TD 09/17/16 09:00 10/17/16 08:59 09/20/16 07:53 1 PATCH Miscellaneous (Remove Nicoderm Patch) 1 ea DAILY@2100 N/A 09/17/16 21:00 10/17/16 20:59 09/19/16 20:57 1 EA Aspirin (Ecotrin Tab) 81 mg DAILY PO 09/17/16 09:00 10/17/16 08:59 09/19/16 08:48 81 MG Primidone (Mysoline Tab) 250 mg BID PO 09/17/16 09:00 10/17/16 08:59 09/19/16 20:56 250 MG Propranolol HCl (Inderal La Cap) 60 mg DAILY PO 09/17/16 09:00 10/17/16 08:59 09/19/16 08:48 60 MG Rosuvastatin Calcium (Crestor Tab) 10 mg HS PO 09/17/16 21:00 10/17/16 20:59 09/19/16 20:56 10 MG Citalopram Hydrobromide (celeXA TAB) 10 mg QAM PO 09/17/16 09:00 10/17/16 08:59 09/19/16 08:48 10 MG Ergocalciferol (Vitamin D Cap) 50,000 interunit Q4D PO 09/17/16 00:45 10/31/16 00:46 09/17/16 01:27 50,000 INTERUNIT Azithromycin (Zithromax Tab) 500 mg QAM PO 09/19/16 09:00 09/26/16 08:59 09/19/16 08:48 500 MG Piperacillin Sod/ Tazobactam Sod (Consult) 1 ea UD PRN N/A 09/18/16 18:15 10/18/16 18:14 Piperacillin Sod/ Tazobactam Sod 4.5 gm/Dextrose 120 ml @ 30 mls/hr Q8@0000,0800,1600 IV 09/19/16 00:00 09/26/16 00:00 09/20/16 15:57 30 MLS/HR Heparin Sodium/ Dextrose 500 ml @ 15 mls/hr Q24H PRN IV 09/19/16 20:30 10/19/16 20:29 09/20/16 16:06 15 MLS/HR
[2016-09-20] MEDS: ROSUVASTATIN CALCIUM 10 MG TAB PO SCH (21:17)
[2016-09-20 22:45] LABS: PARTIAL THROMBOPLASTIN RATIO 2.5
[2016-09-21] VITALS (10 sets, daily range): BP systolic 90–152; BP diastolic 56–76; PULSE 56–81; TEMP 36.5–37; O2SAT 92–97
[2016-09-21] MEDS: ERGOCALCIFEROL 50,000 INTER.UNIT CAP PO SCH (00:01)
[2016-09-21 06:17] LABS: HEMATOCRIT 35.4 % (37-47); MEAN CELL VOLUME 94.9 fL (80-100); MEAN CORPUSCULAR HGB CONC 31.6 g/dl (32-36); MEAN PLATELET VOLUME 9.3 fL (7.4-10.4); PLATELET COUNT 422 K/uL (130-400); RED BLOOD COUNT 3.73 M/uL (4.2-5.4); WHITE BLOOD COUNT 14.28 K/uL (4.8-10.8)
[2016-09-21 06:30] LABS: PARTIAL THROMBOPLASTIN RATIO 1.6
[2016-09-21 06:57] LABS: BUN/CREATININE RATIO 3.8 (10-20); CALCIUM 8.1 mg/dl (8.5-10.1); CREATININE 0.69 mg/dl (0.60-1.20); POTASSIUM 3.8 mmol/L (3.5-5.1)
[2016-09-21] MEDS ORDERED: HEPARIN IV BOLUS 2,000 UNIT in SYRINGE 0 ML IV ONE (07:30)
--- NOTE | 2016-09-21 07:37 | DIAGNOSTIC IMAGING REPORT ---
CHEST ONE VIEW PORTABLE CLINICAL HISTORY: s/p bronchoscopy with elevated WBC count. Dyspnea COMPARISON STUDY: 09/16/2016 FINDINGS: Unchanging densities right midlung and right base. Potential superimposed infiltrative process right base. Trace pleural fluid right lateral costophrenic angle. IMPRESSION: 1. Unchanging densities peripheral aspect right midlung and right base. 2. Interval trace pleural effusion/infiltrate right base. Electronically signed by: Jj Mcclellan M.D. 09/21/2016 7:36 AM Dictated Date/Time: 09/21/2016 7:34 AM
--- NOTE | 2016-09-21 07:39 | Pulmonology Progress Note ---
Pulmonary Progress Note Date of Service Sep 21, 2016. Attending Dr. White Subjective Patient denies dyspnea at rest, but does note intermittent cough. Objective Patient doing well today showing no signs of respiratory insufficiency: Able to complete full sentences, not using accessory muscles no signs of tachypnea Vital signs: SaO2 stable on 1-2 L nasal cannula Respiratory: Minimal rhonchi appreciated bilaterally Cardiac: S1 and S2 distant heart sounds regular. Abdomen: Positive bowel sounds soft nontender Labs: WBCs: 14 K Assessment & Plan 70-year-old female being seen for pulmonary masses and possible tuberculosis status post bronchoscopy: #1 Tuberculosis: At this time bronchoscopy has been performed and follow-up every 8 hour induce sputums have also been collected. We will wait for the AFB report and if negative will take out of isolation at that time and follow-up with a 6 week culture report. QuantiFERON Gold still pending at this time. #2 Lung Masses: Right upper lobe and right lower lobe lung masses. Patient still is at high risk for primary lung carcinoma but she would like to defer biopsy at this time wait for active treatment of her pneumonia and repeat CT in 6 weeks. #3 Leukocytosis: Continue current antibiotics leukocytosis status post bronchoscopy as well as fever within the next 24 hours is within normal limits. We will await bronchial alveolar lavage culture and I have ordered chest x- ray. Data Medications: Current Inpatient Medications Medications (Trade) Dose Ordered Sig/Paula Route Start Time Stop Time Status Last Admin Dose Admin Acetaminophen (Tylenol Tab) 650 mg Q4H PRN PO 09/16/16 22:45 10/16/16 22:44 Ondansetron HCl (Zofran Inj) 4 mg Q6H PRN IV 09/16/16 22:45 10/16/16 22:44 Polyethylene (Miralax Powder Packet) 17 gm DAILY PRN PO 09/16/16 22:45 10/16/16 22:44 09/18/16 08:03 17 GM Nicotine (Nicoderm Cq 21MG Patch) 1 patch DAILY@0900 TD 09/17/16 09:00 10/17/16 08:59 09/20/16 07:53 1 PATCH Miscellaneous (Remove Nicoderm Patch) 1 ea DAILY@2100 N/A 09/17/16 21:00 10/17/16 20:59 09/20/16 21:19 1 EA Aspirin (Ecotrin Tab) 81 mg DAILY PO 09/17/16 09:00 10/17/16 08:59 09/19/16 08:48 81 MG Primidone (Mysoline Tab) 250 mg BID PO 09/17/16 09:00 10/17/16 08:59 09/20/16 21:19 250 MG Propranolol HCl (Inderal La Cap) 60 mg DAILY PO 09/17/16 09:00 10/17/16 08:59 09/19/16 08:48 60 MG Rosuvastatin Calcium (Crestor Tab) 10 mg HS PO 09/17/16 21:00 10/17/16 20:59 09/20/16 21:17 10 MG Citalopram Hydrobromide (celeXA TAB) 10 mg QAM PO 09/17/16 09:00 10/17/16 08:59 09/19/16 08:48 10 MG Ergocalciferol (Vitamin D Cap) 50,000 interunit Q4D PO 09/17/16 00:45 10/31/16 00:46 09/21/16 00:01 50,000 INTERUNIT Azithromycin (Zithromax Tab) 500 mg QAM PO 09/19/16 09:00 09/26/16 08:59 09/19/16 08:48 500 MG Piperacillin Sod/ Tazobactam Sod (Consult) 1 ea UD PRN N/A 09/18/16 18:15 10/18/16 18:14 Piperacillin Sod/ Tazobactam Sod 4.5 gm/Dextrose 120 ml @ 30 mls/hr Q8@0000,0800,1600 IV 09/19/16 00:00 09/26/16 00:00 09/21/16 00:00 30 MLS/HR Heparin Sodium/ Dextrose 500 ml @ 16 mls/hr Q24H PRN IV 09/19/16 20:30 10/19/16 20:29 09/20/16 16:06 15 MLS/HR Vital Signs: Date Time Temp Pulse Resp B/P (MAP) Pulse Ox O2 Delivery O2 Flow Rate FiO2 09/21/16 07:27 37.0 77 19 114/68 (83) 97 Nasal Cannula 1.0 09/21/16 04:33 36.5 81 18 109/73 (85) 92 2.0 09/21/16 04:00 Nasal Cannula 2.0 09/21/16 00:06 36.5 71 22 152/76 (101) 94 Nasal Cannula 2.0 09/21/16 00:00 Nasal Cannula 2.0 09/20/16 22:51 36.4 71 18 107/61 (76) 97 Nasal Cannula 2.0 09/20/16 20:00 Nasal Cannula 2.0 09/20/16 16:00 Nasal Cannula 2.0 09/20/16 15:41 36.4 88 18 156/84 (108) 93 Nasal Cannula 2.0 09/20/16 13:30 80 24 126/76 (93) 88 Room Air 09/20/16 13:00 74 25 115/71 (86) 88 Room Air 09/20/16 12:30 93 27 142/76 (98) 95 Oxyhood 4.0 09/20/16 12:00 36.7 81 29 128/77 (94) 95 Oxyhood 4.0 09/20/16 12:00 Oxyhood 4.0 09/20/16 11:59 36.7 87 32 126/78 (94) 98 Oxyhood 10.0 09/20/16 11:30 36.5 96 22 146/78 95 Mask 15.0 09/20/16 11:21 Mask 09/20/16 11:20 36.5 89 24 152/73 95 Mask 15.0 09/20/16 11:10 36.5 92 26 159/91 94 Mask 15.0 09/20/16 11:00 36.5 92 26 164/86 92 Mask 15.0 09/20/16 10:50 36.5 100 26 157/80 92 Mask 15.0 09/20/16 10:35 92 24 177/99 92 Non-Rebreather 15.0 09/20/16 10:30 85 18 169/83 89 Mask 10.0 09/20/16 10:25 85 18 147/72 95 Mask 8.0 09/20/16 10:20 85 24 160/88 99 Mask 4.0 09/20/16 10:15 106 20 160/90 99 Mask 4.0 09/20/16 10:10 89 18 143/107 100 Mask 4.0 09/20/16 10:06 36.9 69 20 127/78 91 Room Air 2.0 09/20/16 10:05 89 18 154/76 100 Mask 4.0 09/20/16 08:30 Room Air Laboratory Results: Last 24 Hours Test 09/20/16 14:48 09/20/16 22:15 09/21/16 05:38 Activated Partial Thromboplast Time 38.8 SECONDS 65.1 SECONDS 42.8 SECONDS Partial Thromboplastin Ratio 1.5 2.5 1.6 White Blood Count 14.28 K/uL Red Blood Count 3.73 M/uL Hemoglobin 11.2 g/dL Hematocrit 35.4 % Mean Corpuscular Volume 94.9 fL Mean Corpuscular Hemoglobin 30.0 pg Mean Corpuscular Hemoglobin Concent 31.6 g/dl RDW Standard Deviation 51.4 fL RDW Coefficient of Variation 14.7 % Platelet Count 422 K/uL Mean Platelet Volume 9.3 fL Sodium Level 141 mmol/L Potassium Level 3.8 mmol/L Chloride Level 103 mmol/L Carbon Dioxide Level 30 mmol/L Anion Gap 8.0 mmol/L Blood Urea Nitrogen 3 mg/dl Creatinine 0.69 mg/dl Est Creatinine Clear Calc Drug Dose 61.0 ml/min Estimated GFR () 100.8 Estimated GFR (Non- 87.0 BUN/Creatinine Ratio 3.8 Random Glucose 94 mg/dl Calcium Level 8.1 mg/dl
[2016-09-21] MEDS: PIPERACILL/TAZOBAC IV 4.5 GM in DEXTROSE 5% 100ML 100 ML IV SCH ×4 (07:49→15:45)
[2016-09-21] MEDS: HEPARIN 25,000 UNIT/500ML D5W 500 ML IV PRN (07:49)
[2016-09-21] MEDS: PRIMIDONE 250 MG TAB PO SCH ×2 (07:52→21:27)
[2016-09-21] MEDS: AZITHROMYCIN 250 MG TAB PO SCH (07:53)
[2016-09-21] MEDS: PROPRANOLOL HCL 60 MG LA CAP PO SCH (07:53)
[2016-09-21] MEDS: CITALOPRAM 20 MG TAB PO SCH (07:53)
[2016-09-21] MEDS: ASPIRIN 81 MG ECTAB PO SCH (07:53)
[2016-09-21] MEDS: NICOTINE 21 MG/24 HR TDSY TD SCH (07:54)
[2016-09-21 14:07] LABS: QUANTIFERON NIL 0.03 IU/ML
[2016-09-21 14:27] LABS: PARTIAL THROMBOPLASTIN RATIO 2.1
--- NOTE | 2016-09-21 17:23 | Progress Note ---
Medicine Progress Note Date & Time of Visit: Sep 21, 2016 at 17:08. Subjective Pt was seen and examined Sitting in chair with no distress Pt said that she feels much better today she agreed to go to rehab to build her strength denies any chest pain, palpitation, dizziness and sob Objective Last 8 Hrs Date Time Temp Pulse Resp B/P (MAP) Pulse Ox O2 Delivery O2 Flow Rate FiO2 09/21/16 16:00 95 Nasal Cannula 2.0 09/21/16 15:30 36.8 64 20 113/62 (79) 95 Nasal Cannula 1.0 09/21/16 12:00 Nasal Cannula 2.0 09/21/16 11:36 36.7 70 18 90/56 (67) 96 Physical Exam: General- no acute distress Head- atraumatic Eyes- PERRL, EOMI ENT- oropharynx clear Neck- supple, no JVD Lungs- Decrease breath sound Heart- regular rhythm; no murmur Abdomen- normal bowel sounds, soft Extremities- +LE edema L>R, no calf tenderness Neuro- alert, oriented x 3; PERRL, EOMI; no facial palsy Skin- warm & dry Laboratory Results: Last 24 Hours Test 09/20/16 22:15 09/21/16 05:38 09/21/16 13:55 Activated Partial Thromboplast Time 65.1 SECONDS 42.8 SECONDS 55.1 SECONDS Partial Thromboplastin Ratio 2.5 1.6 2.1 White Blood Count 14.28 K/uL Red Blood Count 3.73 M/uL Hemoglobin 11.2 g/dL Hematocrit 35.4 % Mean Corpuscular Volume 94.9 fL Mean Corpuscular Hemoglobin 30.0 pg Mean Corpuscular Hemoglobin Concent 31.6 g/dl RDW Standard Deviation 51.4 fL RDW Coefficient of Variation 14.7 % Platelet Count 422 K/uL Mean Platelet Volume 9.3 fL Sodium Level 141 mmol/L Potassium Level 3.8 mmol/L Chloride Level 103 mmol/L Carbon Dioxide Level 30 mmol/L Anion Gap 8.0 mmol/L Blood Urea Nitrogen 3 mg/dl Creatinine 0.69 mg/dl Est Creatinine Clear Calc Drug Dose 61.0 ml/min Estimated GFR () 100.8 Estimated GFR (Non- 87.0 BUN/Creatinine Ratio 3.8 Random Glucose 94 mg/dl Calcium Level 8.1 mg/dl Assessment & Plan UTI Urine culture grew Escherichia coli, pansensitive. already on broad coverage iv Zosyn Monitor CBC POSSIBLE PNEUMONIA / ABNORMAL CHEST X-RAY She is a smoker and has greater than 32-[id number]-dovs history Occasional cough, no hemoptysis. Chest x-ray demonstrated right upper lobe and right lower lobe densities. CT of chest demonstrated RUL and RLL densities with necrosis. Need to r/o TB vs Lung malignancy Received azithromycin and ceftriaxone for possible community-acquired pneumonia. Antibiotic coverage changed to azithromycin, piperacillin / tazo. S/p Bronchoscopy with bronchial lavage performed by Dr. White on isolation for now, waiting for sputum cx to r/o active TB Quantifron, AFB cx and smear, bronchial culture and cytology pending Pt deferred lung biopsy for now. Will repeat the CT chest in 6 weeks for resolution Pulmonary on board Follow up with pulmonary as an outpatient LOW OXYGEN SATURATION Might be her baseline Chronic smoker with greater than [id number]-czve-[id number] history Mostly has underlying COPD (but was never diagnosed) Will get a 2 step exercise once stable to discharge Continue supplement oxygen to keep O2 sat above 90 % DEHYDRATION Received IVF Stable B/L LE DVT Venous doppler U/S showed bilateral deep venous thrombosis and Complete occlusion right posterior tibial vein, with partial involvement of the left peroneal vein. On heparin drip. Discussed with daughter about anticoagulant with Warfarin and the newest agents. side effects discussed such as GI bleed and intracranial bleeding, bruises. Changed IV heparin to Eliquis e CEREBROVASCULAR DISEASE Old strokes noted on CT scan. Continue aspirin and rosuvastatin. stable ESSENTIAL TREMOR Continue propranolol and primidone. Stable SMOKING Smoking cessation counseling. DEPRESSION Continue citalopram. GENERALIZED WEAKNESSs. Generalized weakness probably multifactorial. was in the bathtub for 3 days Agreed to go to rehab for PT Continue PT/OT. VTE PROPHYLAXIS On heparin drip for DVT DISPOSITION May benefit from inpatient rehabilitation or skilled care. agreed to go to Rehab Updated daughter about her [facility]'s course Family Medicine follow-up with Dr. Narvaez. Consultants: Pulmonary Medicine . Procedures: cardiac monitoring intravenous fluids intravenous medications CT head CT chest . Current Inpatient Medications: Current Inpatient Medications Medications (Trade) Dose Ordered Sig/Paula Route Start Time Stop Time Status Last Admin Dose Admin Acetaminophen (Tylenol Tab) 650 mg Q4H PRN PO 09/16/16 22:45 10/16/16 22:44 Ondansetron HCl (Zofran Inj) 4 mg Q6H PRN IV 09/16/16 22:45 10/16/16 22:44 Polyethylene (Miralax Powder Packet) 17 gm DAILY PRN PO 09/16/16 22:45 10/16/16 22:44 09/18/16 08:03 17 GM Nicotine (Nicoderm Cq 21MG Patch) 1 patch DAILY@0900 TD 09/17/16 09:00 10/17/16 08:59 09/21/16 07:54 1 PATCH Miscellaneous (Remove Nicoderm Patch) 1 ea DAILY@2100 N/A 09/17/16 21:00 10/17/16 20:59 09/20/16 21:19 1 EA Aspirin (Ecotrin Tab) 81 mg DAILY PO 09/17/16 09:00 10/17/16 08:59 09/21/16 07:53 81 MG Primidone (Mysoline Tab) 250 mg BID PO 09/17/16 09:00 10/17/16 08:59 09/21/16 07:52 250 MG Propranolol HCl (Inderal La Cap) 60 mg DAILY PO 09/17/16 09:00 10/17/16 08:59 09/21/16 07:53 60 MG Rosuvastatin Calcium (Crestor Tab) 10 mg HS PO 09/17/16 21:00 10/17/16 20:59 09/20/16 21:17 10 MG Citalopram Hydrobromide (celeXA TAB) 10 mg QAM PO 09/17/16 09:00 10/17/16 08:59 09/21/16 07:53 10 MG Ergocalciferol (Vitamin D Cap) 50,000 interunit Q4D PO 09/17/16 00:45 10/31/16 00:46 09/21/16 00:01 50,000 INTERUNIT Azithromycin (Zithromax Tab) 500 mg QAM PO 09/19/16 09:00 09/26/16 08:59 09/21/16 07:53 500 MG Piperacillin Sod/ Tazobactam Sod (Consult) 1 ea UD PRN N/A 09/18/16 18:15 10/18/16 18:14 Piperacillin Sod/ Tazobactam Sod 4.5 gm/Dextrose 120 ml @ 30 mls/hr Q8@0000,0800,1600 IV 09/19/16 00:00 09/26/16 00:00 09/21/16 15:45 30 MLS/HR Heparin Sodium/ Dextrose 500 ml @ 16 mls/hr Q24H PRN IV 09/19/16 20:30 10/19/16 20:29 09/21/16 07:49 16 MLS/HR
[2016-09-21] MEDS: ROSUVASTATIN CALCIUM 10 MG TAB PO SCH (21:16)
[2016-09-22] MEDS: PIPERACILL/TAZOBAC IV 4.5 GM in DEXTROSE 5% 100ML 100 ML IV SCH ×2 (00:13→08:47)
[2016-09-22 06:02] LABS: HEMATOCRIT 32.1 % (37-47); MEAN CORPUSCULAR HEMOGLOBIN 30.2 pg (25-34); MEAN CORPUSCULAR HGB CONC 31.8 g/dl (32-36); MEAN PLATELET VOLUME 9.3 fL (7.4-10.4); PLATELET COUNT 352 K/uL (130-400); RED BLOOD COUNT 3.38 M/uL (4.2-5.4); WHITE BLOOD COUNT 10.63 K/uL (4.8-10.8)
[2016-09-22 06:24] LABS: PARTIAL THROMBOPLASTIN RATIO 1.9
[2016-09-22 07:21] VITALS: BP 113/73; PULSE 55; TEMP 36.3; O2SAT 94
[2016-09-22] MEDS: AZITHROMYCIN 250 MG TAB PO SCH (07:56)
[2016-09-22] MEDS: PROPRANOLOL HCL 60 MG LA CAP PO SCH (07:57)
[2016-09-22] MEDS: CITALOPRAM 20 MG TAB PO SCH (07:57)
[2016-09-22] MEDS: PRIMIDONE 250 MG TAB PO SCH ×2 (07:58→20:28)
[2016-09-22] MEDS: ASPIRIN 81 MG ECTAB PO SCH (07:58)
[2016-09-22] MEDS: NICOTINE 21 MG/24 HR TDSY TD SCH (08:48)
--- NOTE | 2016-09-22 09:02 | Pulmonology Progress Note ---
Pulmonary Progress Note Date of Service Sep 22, 2016. Attending Dr. White Subjective Patient doing well today but continues to note dyspnea on exertion intermittent productive cough: Objective Patient doing well today showing no signs of respiratory insufficiency: Able to complete full sentences, not using accessory muscles no signs of tachypnea Vital signs: SaO2 stable on 2 L nasal cannula Respiratory: Minimal rhonchi appreciated bilaterally Cardiac: S1 and S2 distant heart sounds regular. Abdomen: Positive bowel sounds soft nontender Labs: QuantiFERON Gold negative BAL: Acid-fast negative Assessment & Plan 70-year-old female being seen for pulmonary masses and possible tuberculosis status post bronchoscopy: #1 Tuberculosis: The patient's QuantiFERON Gold is negative and her BAL acid- fast stain is negative. This time I will take the patient out of isolation if she would be considered noncommunicable. We'll start the follow-up in 6 weeks for the final microbiologic report. #2 Lung Masses: Patient will require 10 day course of antibiotics. We can switch her to Augmentin at this time. Discontinuing on 11/28/2016. Patient will also follow-up in the [place] [facility] with repeat CAT scan 6 weeks after initial one which would be approximately October 31. After this the patient to be seen in the pulmonary clinic for discussion with the family of the repeat CAT scan evaluation. #3 DVT: This patient does not have definitive cancer at this time and there is a secondary diagnosis of infection I suggest we move the patient to Lovenox and treatment. There is a post subgroup analysis based off the EINSTEIN-DVT and EITEIN-PE studies that shows [place] span to be non-inferior to Lovenox even in cancer patients for prevention of VTE. #4 Decompensation: Patient is noted be decompensated will require two-step for oxygen evaluation prior to discharge as well as physical therapy evaluation. Data Medications: Current Inpatient Medications Medications (Trade) Dose Ordered Sig/Paula Route Start Time Stop Time Status Last Admin Dose Admin Acetaminophen (Tylenol Tab) 650 mg Q4H PRN PO 09/16/16 22:45 10/16/16 22:44 Ondansetron HCl (Zofran Inj) 4 mg Q6H PRN IV 09/16/16 22:45 10/16/16 22:44 Polyethylene (Miralax Powder Packet) 17 gm DAILY PRN PO 09/16/16 22:45 10/16/16 22:44 6/4/17 08:03 17 GM Nicotine (Nicoderm Cq 21MG Patch) 1 patch DAILY@0900 TD 09/17/16 09:00 10/17/16 08:59 09/21/16 07:54 1 PATCH Miscellaneous (Remove Nicoderm Patch) 1 ea DAILY@2100 N/A 09/17/16 21:00 10/17/16 20:59 09/21/16 21:16 1 EA Aspirin (Ecotrin Tab) 81 mg DAILY PO 09/17/16 09:00 10/17/16 08:59 09/22/16 07:58 81 MG Primidone (Mysoline Tab) 250 mg BID PO 09/17/16 09:00 10/17/16 08:59 09/22/16 07:58 250 MG Propranolol HCl (Inderal La Cap) 60 mg DAILY PO 09/17/16 09:00 10/17/16 08:59 09/21/16 07:53 60 MG Rosuvastatin Calcium (Crestor Tab) 10 mg HS PO 09/17/16 21:00 10/17/16 20:59 09/21/16 21:16 10 MG Citalopram Hydrobromide (celeXA TAB) 10 mg QAM PO 09/17/16 09:00 10/17/16 08:59 09/22/16 07:57 10 MG Ergocalciferol (Vitamin D Cap) 50,000 interunit Q4D PO 09/17/16 00:45 10/31/16 00:46 09/21/16 00:01 50,000 INTERUNIT Azithromycin (Zithromax Tab) 500 mg QAM PO 09/19/16 09:00 09/26/16 08:59 09/22/16 07:56 500 MG Piperacillin Sod/ Tazobactam Sod (Consult) 1 ea UD PRN N/A 09/18/16 18:15 10/18/16 18:14 Piperacillin Sod/ Tazobactam Sod 4.5 gm/Dextrose 120 ml @ 30 mls/hr Q8@0000,0800,1600 IV 09/19/16 00:00 09/26/16 00:00 09/22/16 00:13 30 MLS/HR Heparin Sodium/ Dextrose 500 ml @ 16 mls/hr Q24H PRN IV 09/19/16 20:30 10/19/16 20:29 09/21/16 07:49 16 MLS/HR Vital Signs: Date Time Temp Pulse Resp B/P (MAP) Pulse Ox O2 Delivery O2 Flow Rate FiO2 09/22/16 07:45 Room Air 09/22/16 07:21 36.3 55 20 113/73 (86) 94 Nasal Cannula 2.0 09/22/16 00:00 Nasal Cannula 2.0 09/21/16 23:51 36.5 68 16 116/68 (84) 97 Nasal Cannula 2.0 09/21/16 20:57 36.5 56 18 116/76 (89) 97 Nasal Cannula 2.0 09/21/16 20:23 37.0 60 20 97 1.0 09/21/16 19:37 37.0 60 20 102/62 (75) 97 Nasal Cannula 1.0 09/21/16 16:00 95 Nasal Cannula 2.0 09/21/16 15:30 36.8 64 20 113/62 (79) 95 Nasal Cannula 1.0 09/21/16 12:00 Nasal Cannula 2.0 09/21/16 11:36 36.7 70 18 90/56 (67) 96 Laboratory Results: Last 24 Hours Test 09/21/16 13:55 09/22/16 05:23 Activated Partial Thromboplast Time 55.1 SECONDS 50.4 SECONDS Partial Thromboplastin Ratio 2.1 1.9 White Blood Count 10.63 K/uL Red Blood Count 3.38 M/uL Hemoglobin 10.2 g/dL Hematocrit 32.1 % Mean Corpuscular Volume 95.0 fL Mean Corpuscular Hemoglobin 30.2 pg Mean Corpuscular Hemoglobin Concent 31.8 g/dl RDW Standard Deviation 51.2 fL RDW Coefficient of Variation 14.8 % Platelet Count 352 K/uL Mean Platelet Volume 9.3 fL
[2016-09-22] MEDS ORDERED: AMOXICILLIN/CLAVULANATE TAB 875 MG TAB PO ONE (09:15)
[2016-09-22] MEDS: RIVAROXABAN TAB 15 MG TAB PO SCH ×2 (12:45→20:29)
[2016-09-22 15:09] VITALS: BP 121/71; PULSE 59; TEMP 36.3; O2SAT 97
[2016-09-22 16:02] VITALS: O2SAT 97
[2016-09-22] MEDS: AMOXICILLIN/CLAVULANATE TAB 875 MG TAB PO SCH (16:13)
--- NOTE | 2016-09-22 17:10 | Progress Note ---
Medicine Progress Note Date & Time of Visit: Sep 22, 2016 at 16:58. Subjective Pt was seen and examined Sitting in chair comfortable with no distress watching TV with daughter presents. Pt said that she feels fine Her breathing improved she walked in the hallway today she denies any chest pain, palpitation, dizziness and SOB Objective Last 8 Hrs Date Time Temp Pulse Resp B/P (MAP) Pulse Ox O2 Delivery O2 Flow Rate FiO2 09/22/16 15:09 36.3 59 24 121/71 (88) 97 Nasal Cannula 2.0 Physical Exam: General- no acute distress Head- atraumatic Eyes- PERRL, EOMI ENT- oropharynx clear Neck- supple, no JVD Lungs- Decrease breath sound Heart- regular rhythm; no murmur Abdomen- normal bowel sounds, soft Extremities- +LE edema L>R, no calf tenderness Neuro- alert, oriented x 3; PERRL, EOMI; no facial palsy Skin- warm & dry Laboratory Results: Last 24 Hours Test 09/22/16 05:23 White Blood Count 10.63 K/uL Red Blood Count 3.38 M/uL Hemoglobin 10.2 g/dL Hematocrit 32.1 % Mean Corpuscular Volume 95.0 fL Mean Corpuscular Hemoglobin 30.2 pg Mean Corpuscular Hemoglobin Concent 31.8 g/dl RDW Standard Deviation 51.2 fL RDW Coefficient of Variation 14.8 % Platelet Count 352 K/uL Mean Platelet Volume 9.3 fL Activated Partial Thromboplast Time 50.4 SECONDS Partial Thromboplastin Ratio 1.9 Assessment & Plan UTI Urine culture grew Escherichia coli, pansensitive. already on broad coverage iv Zosyn Monitor CBC Stable POSSIBLE PNEUMONIA / ABNORMAL CHEST X-RAY She is a smoker and has greater than 37-gzyw-cvsq history Occasional cough, no hemoptysis. Chest x-ray demonstrated right upper lobe and right lower lobe densities. CT of chest demonstrated RUL and RLL densities with necrosis. Need to r/o TB vs Lung malignancy Received azithromycin and ceftriaxone for possible community-acquired pneumonia. Antibiotic coverage changed to azithromycin, piperacillin / tazo. S/p Bronchoscopy with bronchial lavage performed by Dr. White on isolation for now, waiting for sputum cx to r/o active TB Quantifron, AFB cx and smear, bronchial culture and cytology pending Pt deferred lung biopsy for now. Will repeat the CT chest in 6 weeks for resolution Pulmonary on board Follow up with pulmonary as an outpatient 09/22/16 Abx changed to augmentin Quantifron and sputum cx negative for TB Removed from isolation Clinically improved Will need to follow with pulmonary at the [facility] with Dr. White Will consult speech therapy since pt sometimes aspirated aspiration precaution LOW OXYGEN SATURATION Might be her baseline Chronic smoker with greater than 82-dnbj-[id number] history Mostly has underlying COPD (but was never diagnosed) Will get a 2 step exercise once stable to discharge Continue supplement oxygen to keep O2 sat above 90 % DEHYDRATION Received IVF Stable B/L LE DVT Venous doppler U/S showed bilateral deep venous thrombosis and Complete occlusion right posterior tibial vein, with partial involvement of the left peroneal vein. On heparin drip. Discussed with daughter about anticoagulant with Warfarin and the newest agents. side effects discussed such as GI bleed and intracranial bleeding, bruises. D/C IV heparin started on xarelto CEREBROVASCULAR DISEASE Old strokes noted on CT scan. Continue aspirin and rosuvastatin. stable ESSENTIAL TREMOR Continue propranolol and primidone. Stable SMOKING Smoking cessation counseling. Continue nicotine patch DEPRESSION Continue citalopram. GENERALIZED WEAKNESSs. Generalized weakness probably multifactorial. was in the bathtub for 3 days Agreed to go to rehab for PT Continue PT/OT. Fall precaution VTE PROPHYLAXIS Was on heparin drip for DVT On Xarelto DISPOSITION Will discharge to rehab tomorrow Family Medicine follow-up with Dr. Narvaez. Consultants: Pulmonary Medicine . Procedures: cardiac monitoring intravenous fluids intravenous medications CT head CT chest . Current Inpatient Medications: Current Inpatient Medications Medications (Trade) Dose Ordered Sig/Paula Route Start Time Stop Time Status Last Admin Dose Admin Acetaminophen (Tylenol Tab) 650 mg Q4H PRN PO 09/16/16 22:45 10/16/16 22:44 Ondansetron HCl (Zofran Inj) 4 mg Q6H PRN IV 09/16/16 22:45 10/16/16 22:44 Polyethylene (Miralax Powder Packet) 17 gm DAILY PRN PO 09/16/16 22:45 10/16/16 22:44 09/18/16 08:03 17 GM Nicotine (Nicoderm Cq 21MG Patch) 1 patch DAILY@0900 TD 09/17/16 09:00 10/17/16 08:59 09/22/16 08:48 1 PATCH Miscellaneous (Remove Nicoderm Patch) 1 ea DAILY@2100 N/A 09/17/16 21:00 10/17/16 20:59 09/21/16 21:16 1 EA Aspirin (Ecotrin Tab) 81 mg DAILY PO 09/17/16 09:00 10/17/16 08:59 09/22/16 07:58 81 MG Primidone (Mysoline Tab) 250 mg BID PO 09/17/16 09:00 10/17/16 08:59 09/22/16 07:58 250 MG Propranolol HCl (Inderal La Cap) 60 mg DAILY PO 09/17/16 09:00 10/17/16 08:59 09/21/16 07:53 60 MG Rosuvastatin Calcium (Crestor Tab) 10 mg HS PO 09/17/16 21:00 10/17/16 20:59 09/21/16 21:16 10 MG Citalopram Hydrobromide (celeXA TAB) 10 mg QAM PO 09/17/16 09:00 10/17/16 08:59 09/22/16 07:57 10 MG Ergocalciferol (Vitamin D Cap) 50,000 interunit Q4D PO 09/17/16 00:45 10/31/16 00:46 09/21/16 00:01 50,000 INTERUNIT Azithromycin (Zithromax Tab) 500 mg QAM PO 09/19/16 09:00 09/26/16 08:59 09/22/16 07:56 500 MG Rivaroxaban (Xarelto Tab) 15 mg BID PO 09/22/16 12:30 10/22/16 12:29 09/22/16 12:45 15 MG Amoxicillin/ Clavulanate Potassium (Augmentin Tab) 875 mg BIDM PO 09/22/16 17:00 09/28/16 21:00 09/22/16 16:13 875 MG
[2016-09-22] MEDS: ROSUVASTATIN CALCIUM 10 MG TAB PO SCH (20:29)
[2016-09-22 23:31] VITALS: BP 148/87; PULSE 76; TEMP 36.4; O2SAT 92
[2016-09-23 06:01] LABS: HEMATOCRIT 32.4 % (37-47); MEAN CELL VOLUME 95.6 fL (80-100); MEAN CORPUSCULAR HEMOGLOBIN 32.2 pg (25-34); MEAN CORPUSCULAR HGB CONC 33.6 g/dl (32-36); MEAN PLATELET VOLUME 9.5 fL (7.4-10.4); PLATELET COUNT 319 K/uL (130-400); RED BLOOD COUNT 3.39 M/uL (4.2-5.4)
[2016-09-23 07:17] VITALS: BP 133/77; PULSE 73; TEMP 36.2; O2SAT 90
[2016-09-23] MEDS: RIVAROXABAN TAB 15 MG TAB PO SCH (08:12)
[2016-09-23] MEDS: PRIMIDONE 250 MG TAB PO SCH (08:12)
[2016-09-23] MEDS: CITALOPRAM 20 MG TAB PO SCH (08:13)
[2016-09-23] MEDS: PROPRANOLOL HCL 60 MG LA CAP PO SCH (08:13)
[2016-09-23] MEDS: ASPIRIN 81 MG ECTAB PO SCH (08:13)
[2016-09-23] MEDS: AZITHROMYCIN 250 MG TAB PO SCH (08:13)
[2016-09-23] MEDS: AMOXICILLIN/CLAVULANATE TAB 875 MG TAB PO SCH (08:13)
[2016-09-23] MEDS: NICOTINE 21 MG/24 HR TDSY TD SCH (08:15)
--- NOTE | 2016-09-23 13:11 | Progress Note ---
Medicine Progress Note Date & Time of Visit: Sep 23, 2016 at 12:53. Subjective Pt was seen and examined Sitting in chair watching TV with no distress with daughter present Pt said that she feels fine she said that she was up last night going to the bathroom every few hours denies any chest pain, palpitation, dizziness and SOB Objective Last 8 Hrs Date Time Temp Pulse Resp B/P (MAP) Pulse Ox O2 Delivery O2 Flow Rate FiO2 09/23/16 08:00 Room Air 09/23/16 07:17 36.2 73 16 133/77 (95) 90 Room Air Physical Exam: General- no acute distress Head- atraumatic Eyes- PERRL, EOMI ENT- oropharynx clear Neck- supple, no JVD Lungs- Decrease breath sound Heart- regular rhythm; no murmur Abdomen- normal bowel sounds, soft Extremities- +LE edema L>R, no calf tenderness Neuro- alert, oriented x 3; PERRL, EOMI; no facial palsy Skin- warm & dry Laboratory Results: Last 24 Hours Test 09/23/16 04:58 White Blood Count 9.60 K/uL Red Blood Count 3.39 M/uL Hemoglobin 10.9 g/dL Hematocrit 32.4 % Mean Corpuscular Volume 95.6 fL Mean Corpuscular Hemoglobin 32.2 pg Mean Corpuscular Hemoglobin Concent 33.6 g/dl RDW Standard Deviation 51.3 fL RDW Coefficient of Variation 14.7 % Platelet Count 319 K/uL Mean Platelet Volume 9.5 fL Assessment & Plan UTI Urine culture grew Escherichia coli, pansensitive. was on iv Zosyn for 7 days Stable POSSIBLE PNEUMONIA / ABNORMAL CHEST X-RAY She is a smoker and has greater than 62-dzer-amhj history Occasional cough, no hemoptysis. Chest x-ray demonstrated right upper lobe and right lower lobe densities. CT of chest demonstrated RUL and RLL densities with necrosis. Need to r/o TB vs Lung malignancy Received azithromycin and ceftriaxone for possible community-acquired pneumonia. Antibiotic coverage changed to azithromycin, piperacillin / tazo. S/p Bronchoscopy with bronchial lavage performed by Dr. White on isolation for now, waiting for sputum cx to r/o active TB Quantifron, AFB cx and smear, bronchial culture and cytology pending Pt deferred lung biopsy for now. Will repeat the CT chest in 6 weeks for resolution Pulmonary on board Follow up with pulmonary as an outpatient 09/22/16 Abx changed to augmentin Quantifron and sputum cx negative for TB Removed from isolation Clinically improved Will need to follow with pulmonary at the [facility] [address] with [address] White Oxygen droppep to 85% with ambulation Requires oxygen 2L NC with ambulation she will need 2 step exercise before discharging from rehab DYSPHAGIA Will consult speech therapy since pt sometimes aspirated aspiration precaution will get a Video swallow today LOW OXYGEN SATURATION Might be her baseline Chronic smoker with greater than 70-syxg-iufu history Mostly has underlying COPD (but was never diagnosed) Continue supplement oxygen to keep O2 sat above 90 % Oxygen droppep to 85% with ambulation Requires oxygen 2L NC with ambulation she will need 2 step exercise before discharging from rehab DEHYDRATION Received IVF Stable B/L LE DVT Venous doppler U/S showed bilateral deep venous thrombosis and Complete occlusion right posterior tibial vein, with partial involvement of the left peroneal vein. On heparin drip. Discussed with daughter about anticoagulant with Warfarin and the newest agents. side effects discussed such as GI bleed and intracranial bleeding, bruises. D/C IV heparin Continue Xarelto CEREBROVASCULAR DISEASE Old strokes noted on CT scan. Continue aspirin and rosuvastatin. stable ESSENTIAL TREMOR Continue propranolol and primidone. Stable SMOKING Smoking cessation counseling. Continue nicotine patch DEPRESSION Continue citalopram. GENERALIZED WEAKNESSs. Generalized weakness probably multifactorial. was in the bathtub for 3 days Agreed to go to rehab for PT Continue PT/OT. Fall precaution VTE PROPHYLAXIS Was on heparin drip for DVT On Xarelto DISPOSITION Will discharge to rehab today Follow up with your physician Dr. Narvaez once discharge from Rehab Follow up with Pulmonary Dr. White at the [facility] [address] in about 5-6 weeks (please call to schedule appointment) [address], [address], [place] [address] Consultants: Pulmonary Medicine . Procedures: cardiac monitoring intravenous fluids intravenous medications CT head CT chest . Current Inpatient Medications: Current Inpatient Medications Medications (Trade) Dose Ordered Sig/Paula Route Start Time Stop Time Status Last Admin Dose Admin Acetaminophen (Tylenol Tab) 650 mg Q4H PRN PO 09/16/16 22:45 10/16/16 22:44 Ondansetron HCl (Zofran Inj) 4 mg Q6H PRN IV 09/16/16 22:45 10/16/16 22:44 Polyethylene (Miralax Powder Packet) 17 gm DAILY PRN PO 09/16/16 22:45 10/16/16 22:44 09/18/16 08:03 17 GM Nicotine (Nicoderm Cq 21MG Patch) 1 patch DAILY@0900 TD 09/17/16 09:00 10/17/16 08:59 09/23/16 08:15 1 PATCH Miscellaneous (Remove Nicoderm Patch) 1 ea DAILY@2100 N/A 09/17/16 21:00 10/17/16 20:59 09/22/16 20:30 1 EA Aspirin (Ecotrin Tab) 81 mg DAILY PO 09/17/16 09:00 10/17/16 08:59 09/23/16 08:13 81 MG Primidone (Mysoline Tab) 250 mg BID PO 09/17/16 09:00 10/17/16 08:59 09/23/16 08:12 250 MG Propranolol HCl (Inderal La Cap) 60 mg DAILY PO 09/17/16 09:00 10/17/16 08:59 09/23/16 08:13 60 MG Rosuvastatin Calcium (Crestor Tab) 10 mg HS PO 09/17/16 21:00 10/17/16 20:59 09/22/16 20:29 10 MG Citalopram Hydrobromide (celeXA TAB) 10 mg QAM PO 09/17/16 09:00 10/17/16 08:59 09/23/16 08:13 10 MG Ergocalciferol (Vitamin D Cap) 50,000 interunit Q4D PO 09/17/16 00:45 10/31/16 00:46 09/21/16 00:01 50,000 INTERUNIT Azithromycin (Zithromax Tab) 500 mg QAM PO 09/19/16 09:00 09/26/16 08:59 09/23/16 08:13 500 MG Rivaroxaban (Xarelto Tab) 15 mg BID PO 09/22/16 12:30 10/22/16 12:29 09/23/16 08:12 15 MG Amoxicillin/ Clavulanate Potassium (Augmentin Tab) 875 mg BIDM PO 09/22/16 17:00 09/28/16 21:00 09/23/16 08:13 875 MG
[2016-09-23 14:10] VITALS: BP 133/77; PULSE 73; TEMP 36.2; O2SAT 90
--- NOTE | 2016-09-23 14:21 | Pulmonology Progress Note ---
Pulmonary Progress Note Date of Service Sep 23, 2016. Attending Dr. White Subjective The patient is doing well today she has no active pulmonary complaints. Objective I reviewed the patient and her daughter was in the room at the same time. There is no signs of respiratory insufficiency and the daughter notes dramatic improvement in her mother's overall care/health. Vital signs: SaO2 stable on 2 L nasal cannula Respiratory: Minimal rhonchi appreciated bilaterally Cardiac: S1 and S2 distant heart sounds regular. Abdomen: Positive bowel sounds soft nontender Labs: QuantiFERON Gold negative BAL: Acid-fast negative Assessment & Plan 70-year-old female being seen for pulmonary masses and possible tuberculosis status post bronchoscopy: #1 Tuberculosis: Patient QuantiFERON Gold study is negative and acid-fast bacilli's via bronchoscopy is also negative. Patient can follow for final culture results at the [place] [facility]. #2 Lung Masses: Patient will require 10 day course of antibiotics. We can switch her to Augmentin at this time. Discontinuing on 11/28/2016. Patient will also follow-up in the [place] pulmonary [facility] with repeat CAT scan 6 weeks after initial one which would be approximately October 31. After this the patient to be seen in the pulmonary clinic for discussion with the family of the repeat CAT scan evaluation. #3 DVT: This patient does not have definitive cancer at this time and there is a secondary diagnosis of infection I suggest we move the patient to Lovenox and treatment. There is a post subgroup analysis based off the EINSTEIN-DVT and EINSTEIN-PE studies that shows [place] span to be non-inferior to Lovenox even in cancer patients for prevention of VTE. Patient's DVTs can be followed up at the [place] [facility] for outpatient care. #4 Decompensation: Patient is noted be decompensated will require two-step for oxygen evaluation prior to discharge as well as physical therapy evaluation. Data Medications: Current Inpatient Medications Medications (Trade) Dose Ordered Sig/Paula Route Start Time Stop Time Status Last Admin Dose Admin Acetaminophen (Tylenol Tab) 650 mg Q4H PRN PO 09/16/16 22:45 10/16/16 22:44 Ondansetron HCl (Zofran Inj) 4 mg Q6H PRN IV 09/16/16 22:45 10/16/16 22:44 Polyethylene (Miralax Powder Packet) 17 gm DAILY PRN PO 09/16/16 22:45 10/16/16 22:44 09/18/16 08:03 17 GM Nicotine (Nicoderm Cq 21MG Patch) 1 patch DAILY@0900 TD 09/17/16 09:00 10/17/16 08:59 09/23/16 08:15 1 PATCH Miscellaneous (Remove Nicoderm Patch) 1 ea DAILY@2100 N/A 09/17/16 21:00 10/17/16 20:59 09/22/16 20:30 1 EA Aspirin (Ecotrin Tab) 81 mg DAILY PO 09/17/16 09:00 10/17/16 08:59 09/23/16 08:13 81 MG Primidone (Mysoline Tab) 250 mg BID PO 09/17/16 09:00 10/17/16 08:59 09/23/16 08:12 250 MG Propranolol HCl (Inderal La Cap) 60 mg DAILY PO 09/17/16 09:00 10/17/16 08:59 09/23/16 08:13 60 MG Rosuvastatin Calcium (Crestor Tab) 10 mg HS PO 09/17/16 21:00 10/17/16 20:59 09/22/16 20:29 10 MG Citalopram Hydrobromide (celeXA TAB) 10 mg QAM PO 09/17/16 09:00 10/17/16 08:59 09/23/16 08:13 10 MG Ergocalciferol (Vitamin D Cap) 50,000 interunit Q4D PO 09/17/16 00:45 10/31/16 00:46 09/21/16 00:01 50,000 INTERUNIT Azithromycin (Zithromax Tab) 500 mg QAM PO 09/19/16 09:00 09/26/16 08:59 09/23/16 08:13 500 MG Rivaroxaban (Xarelto Tab) 15 mg BID PO 09/22/16 12:30 10/22/16 12:29 09/23/16 08:12 15 MG Amoxicillin/ Clavulanate Potassium (Augmentin Tab) 875 mg BIDM PO 09/22/16 17:00 09/28/16 21:00 09/23/16 08:13 875 MG Vital Signs: Date Time Temp Pulse Resp B/P (MAP) Pulse Ox O2 Delivery O2 Flow Rate FiO2 09/23/16 14:10 36.2 73 16 90 Room Air Nasal Cannula 09/23/16 08:00 Room Air 09/23/16 07:17 36.2 73 16 133/77 (95) 90 Room Air 09/23/16 00:00 Nasal Cannula 2.0 09/22/16 23:31 36.4 76 16 148/87 (107) 92 Nasal Cannula 2.0 09/22/16 16:02 97 Nasal Cannula 2.0 09/22/16 15:09 36.3 59 24 121/71 (88) 97 Nasal Cannula 2.0 Laboratory Results: Last 24 Hours Test 09/23/16 04:58 White Blood Count 9.60 K/uL Red Blood Count 3.39 M/uL Hemoglobin 10.9 g/dL Hematocrit 32.4 % Mean Corpuscular Volume 95.6 fL Mean Corpuscular Hemoglobin 32.2 pg Mean Corpuscular Hemoglobin Concent 33.6 g/dl RDW Standard Deviation 51.3 fL RDW Coefficient of Variation 14.7 % Platelet Count 319 K/uL Mean Platelet Volume 9.5 fL
--- NOTE | 2016-09-23 14:43 | DIAGNOSTIC IMAGING REPORT ---
VIDEO SWALLOW STUDY CLINICAL HISTORY: Aspiration. Pneumonia. COMPARISON STUDY: No priors. Fluoroscopy time: 3.3 minutes. FINDINGS: Fluoroscopic guidance was provided to the Department of Speech Pathology in performing a video swallow study. The patient consumed barium impregnated pudding, cracker with paste, nectar thick liquid, and thin barium while the swallowing mechanism was observed in real-time. No penetration or aspiration was seen with any of the sampled textures. Esophageal retention was noted with the pudding textures. This cleared with liquid wash. IMPRESSION: No penetration or aspiration was seen with any of the sampled textures. See dedicated speech pathology report for detailed findings and recommendations. Dictated: 09/23/2016 2:37 PM Transcribed: 09/23/2016 2:42 PM Juan Electronically signed by: Remigio Fonseca M.D. 09/23/2016 2:52 PM Dictated Date/Time: 09/23/2016 2:37 PM
[2016-09-23] MEDS ORDERED: ERGO500011 PO (15:23)
[2016-09-23] MEDS ORDERED: XRL15 PO (15:23)
[2016-09-23] MEDS ORDERED: Nicotine TD (15:23)
[2016-09-23] MEDS ORDERED: AMOX1TAB43 PO (15:27)
--- NOTE | 2016-09-23 15:41 | Discharge Instructions ---
Discharge Instructions Date of Service Sep 23, 2016. Admission Reason for Admission: Pneumonia Discharge Discharge Diagnosis / Problem: Pneumonia, Adbormal Chest Xray, UTI, Dysphagia, Bilateral LE DVT, Tobacco Discharge Goals Goal(s): Decrease discomfort, Improve function, Improve disease control Activity Recommendations Activity Limitations: resume your previous activity (as tolerated) . Instructions / Follow-Up Instructions / Follow-Up Discharge to the [facility] for Rehab Follow up with your physician Dr. Narvaez once discharge from Rehab Follow up with Pulmonary Dr. White at the [facility] in about 5-6 weeks (approx. around October 31) (please call to schedule appointment) [address], [address], [place] [address] tel: Fall precaution Continue PT/OT Continue to use 2L oxygen via NC She will need a 2 step exercise once ready to discharge from rehab Counseling on smoking cessation Complete course of antibiotic (Augmentin) Starting on Xarelto for the blot clot. Take xarelto 15mg twice a day for 21 days, then your physician will change it to 20mg to start on day 22.. Medication Instructions: Xarelto Your condition is typically treated with an anticoagulant. Anticoagulants will thin your blood to help prevent new clots. * You should take her medication exactly as directed. * Never skip a dose. * Never take a double dose. If you miss a dose, take it as soon as you remember. Call your Primary Care doctor if you experience any of the following: * Swelling or Pain in your leg * Sudden, continuous pain deep in a muscle * Pain that worsens when you are active or when you stand still for a long time * Chest Pain * Sudden Shortness of Breath * Rapid or pounding heart beat * Fainting * Dizziness * Cough with blood or bloody sputum * Sweating more than normal * Bruises * Heavy or uncontrolled bleeding * Blood in your urine, stool or vomit * Black or tarry stools Caring for Your Self at Home: * Avoid sitting, standing or lying down for long periods without moving your legs and feet * When traveling by car, stop to get out and move around at least once every 3 hours * On long airplane, train or bus rides, get up and move around when possible * If you can't get up, wiggle your toes and tighten your calves to keep your blood moving Follow Up: It is important for you to keep your follow up appointments with your medical provider. Current Hospital Diet Patient's current hospital diet: Regular Diet Discharge Diet Recommended Diet: Regular Diet Pending Studies Studies pending at discharge: yes List of pending studies: Bronchial washing for fungal smear and acid fast stain Medical Emergencies . Who to Call and When: Medical Emergencies: If at any time you feel your situation is an emergency, please call 911 immediately. . Non-Emergent Contact Non-Emergency issues call your: Primary Care Provider Call Non-Emergent contact if: you have a fever (heparin drip), you have any medication questions . . "Provider Documentation" section prepared by Antony Humphrey. . VTE Core Measure Inpt VTE Proph given/why not?: Unfractionated heparin SQ, Other Anticoagulation (xarelto)
--- NOTE | 2016-09-26 19:14 | Discharge Summary ---
Discharge Summary Date of Service Sep 26, 2016. Discharge Summary Admission Date: Sep 16, 2016 at 21:00 Discharge Date: Sep 23, 2016 Discharge Disposition: Rehab Principal Diagnosis: Pneumonia Secondary Diagnoses/Problems: Pneumonia UTI Dysphagia Bilateral LE DVT Tobacco abuse GENERALIZED WEAKNESS DEPRESSION ESSENTIAL TREMOR CVA DEHYDRATION Procedures: cardiac monitoring intravenous fluids intravenous medications CT head CT chest . Consultations: Pulmonary Medicine . Medication Reconciliation New Medications: Amoxicillin & Pot Clavulanate (Amoxicillin/Clavulanate P) 1 Tab Tab 875 MG PO BIDM for 4 Days, TAB Ergocalciferol (Vitamin D 90244 Unit) 50,000 Unit Cap 67113 INTERUNIT PO WK for 12 Days, CAP Rivaroxaban (Xarelto) 15 Mg Tab 15 MG PO BID for 20 Days, TAB [Nicotine] () 1 TDSY 1 PATCH TD DAILY@0900 for 30 Days Continued Medications: Aspirin (Aspirin 81) 81 Mg Tab 81 MG PO DAILY Citalopram Hydrobromide (Citalopram Hydrobromide) 10 Mg Tab 1 TAB PO DAILY Primidone (Mysoline) 250 Mg Tab 1 TAB PO BID Propranolol Hcl (Propranolol ER) 60 Mg Capcr 60 MG PO DAILY Rosuvastatin Calcium (Crestor) 10 Mg Tab 10 MG PO HS, TAB Discontinued Medications: Ibuprofen (Advil) 200 Mg Tab 200 MG PO Admission Information HPI (per Admitting provider): 70 yo female who lives alone became extremely weak after a productive cough for two days and was unable to get out of her bathtub for 3 days. Ultimately a neighbor stopped by and was able to call EMS for her. She is an active smoker. She also reports that she has been having dysuria for the past 2 weeks or more. She denies urinary urgency, flank pain, pelvic or abdominal pain, fevers, chills. Her weakness was generalized. She denies any chest pain, headaches, visual changes, rashes, food allergies, or diarrhea. She reports chronic constipation. She states that she declined to tell her PCP about the dysuria but didn't give a reason why. Physical Exam (per Admitting): GEN: elderly and frail-appearing, in no acute distress, alert and appropriate, no tachypnea or work of breathing HEENT: NC/AT, normal sclerae/conjunctivae, MMM CARDIO: reg rate, S1/2 heard without m/g/r LUNGS: some coarse rhonchi on the R lyles but clearer on the left, poor diaphragmatic excursion, no wheezes or rales. ABD: soft, non-tender, non-distended, no rebound or guarding, +BS, no CVA tenderness EXTREMITY: RP and DP palpable 2+ bilat, no LE swelling or edema, extremities are warm and well-perfused NEURO: CN 2-12 grossly intact, no gross focal deficits. MUSC: 5/5 strength throughout, moves all extremities equally. SKIN: warm and dry Hospital Course UTI Urine culture grew Escherichia coli, pansensitive. was on iv Zosyn for 7 days Stable POSSIBLE PNEUMONIA / ABNORMAL CHEST X-RAY She is a smoker and has greater than [id number] history Occasional cough, no hemoptysis. Chest x-ray demonstrated right upper lobe and right lower lobe densities. CT of chest demonstrated RUL and RLL densities with necrosis. Need to r/o TB vs Lung malignancy Received azithromycin and ceftriaxone for possible community-acquired pneumonia. Antibiotic coverage changed to azithromycin, piperacillin / tazo. S/p Bronchoscopy with bronchial lavage performed by Dr. White on isolation for now, waiting for sputum cx to r/o active TB Quantifron, AFB cx and smear, bronchial culture and cytology pending Pt deferred lung biopsy for now. Will repeat the CT chest in 6 weeks for resolution Pulmonary on board Follow up with pulmonary as an outpatient 09/22/16 Abx changed to augmentin Quantifron and sputum cx negative for TB Removed from isolation Clinically improved Will need to follow with pulmonary at the [facility] with Dr. White Oxygen droppep to 85% with ambulation Requires oxygen 2L NC with ambulation she will need 2 step exercise before discharging from rehab DYSPHAGIA Will consult speech therapy since pt sometimes aspirated aspiration precaution will get a Video swallow today LOW OXYGEN SATURATION Might be her baseline Chronic smoker with greater than [id number] history Mostly has underlying COPD (but was never diagnosed) Continue supplement oxygen to keep O2 sat above 90 % Oxygen droppep to 85% with ambulation Requires oxygen 2L NC with ambulation she will need 2 step exercise before discharging from rehab DEHYDRATION Received IVF Stable B/L LE DVT Venous doppler U/S showed bilateral deep venous thrombosis and Complete occlusion right posterior tibial vein, with partial involvement of the left peroneal vein. On heparin drip. Discussed with daughter about anticoagulant with Warfarin and the newest agents. side effects discussed such as GI bleed and intracranial bleeding, bruises. D/C IV heparin Continue Xarelto CEREBROVASCULAR DISEASE Old strokes noted on CT scan. Continue aspirin and rosuvastatin. stable ESSENTIAL TREMOR Continue propranolol and primidone. Stable SMOKING Smoking cessation counseling. Continue nicotine patch DEPRESSION Continue citalopram. GENERALIZED WEAKNESSs. Generalized weakness probably multifactorial. was in the bathtub for 3 days Agreed to go to rehab for PT Continue PT/OT. Fall precaution VTE PROPHYLAXIS Was on heparin drip for DVT On Xarelto DISPOSITION Will discharge to rehab today Follow up with your physician Dr. Narvaez once discharge from Rehab Follow up with Pulmonary Dr. White at the [facility] in about 5-6 weeks (please call to schedule appointment) [address] [place] [address] [address] [address] Total time spent on discharge = 40 minutes This includes examination of the patient, discharge planning, medication reconciliation, and communication with other providers. Discharge Instructions Discharge Instructions Date of Service Sep 23, 2016. Admission Reason for Admission: Pneumonia Discharge Discharge Diagnosis / Problem: Pneumonia, ABDormal Chest Xray, UTI, Dysphagia, Bilateral LE DVT, Tobacco Discharge Goals Goal(s): Decrease discomfort, Improve function, Improve disease control Activity Recommendations Activity Limitations: resume your previous activity (as tolerated) . Instructions / Follow-Up Instructions / Follow-Up Discharge to the [facility] for Rehab Follow up with your physician Dr. Narvaez once discharge from Rehab Follow up with Pulmonary Dr. White at the [facility] in about 5-6 weeks (approx. around October 31) (please call to schedule appointment) [address] [facility], [facility] [address] [address] tel: Fall precaution Continue PT/OT Continue to use 2L oxygen via NC She will need a 2 step exercise once ready to discharge from rehab Counseling on smoking cessation Complete course of antibiotic (Augmentin) Starting on Xarelto for the blot clot. Take xarelto 15mg twice a day for 21 days, then your physician will change it to 20mg to start on day 22.. Medication Instructions: Xarelto Your condition is typically treated with an anticoagulant. Anticoagulants will thin your blood to help prevent new clots. * You should take her medication exactly as directed. * Never skip a dose. * Never take a double dose. If you miss a dose, take it as soon as you remember. Call your Primary Care doctor if you experience any of the following: * Swelling or Pain in your leg * Sudden, continuous pain deep in a muscle * Pain that worsens when you are active or when you stand still for a long time * Chest Pain * Sudden Shortness of Breath * Rapid or pounding heart beat * Fainting * Dizziness * Cough with blood or bloody sputum * Sweating more than normal * Bruises * Heavy or uncontrolled bleeding * Blood in your urine, stool or vomit * Black or tarry stools Caring for Your Self at Home: * Avoid sitting, standing or lying down for long periods without moving your legs and feet * When traveling by car, stop to get out and move around at least once every 3 hours * On long airplane, train or bus rides, get up and move around when possible * If you can't get up, wiggle your toes and tighten your calves to keep your blood moving Follow Up: It is important for you to keep your follow up appointments with your medical provider. Current Hospital Diet Patient's current hospital diet: Regular Diet Discharge Diet Recommended Diet: Regular Diet Pending Studies Studies pending at discharge: yes List of pending studies: Bronchial washing for fungal smear and acid fast stain Medical Emergencies . Who to Call and When: Medical Emergencies: If at any time you feel your situation is an emergency, please call 911 immediately. . Non-Emergent Contact Non-Emergency issues call your: Primary Care Provider Call Non-Emergent contact if: you have a fever (heparin drip), you have any medication questions . . "Provider Documentation" section prepared by Antony Humphrey. . VTE Core Measure Inpt VTE Proph given/why not?: Unfractionated heparin SQ, Other Anticoagulation (xarelto) Additional Copies To Isha Narvaez M.D. at [facility]
== END 2016-09-23 16:45 | DRG 988 ==
LOC: C.EDB 17:44 → C.2T 21:00 → EEVIPCON 21:00 → ENRESERV 21:17 → C.MED 09-18 15:51 → ENRESERV 09-20 11:19 → C.2T 09-20 11:51 → ENRESERV 09-21 19:57 → C.4E 09-21 20:51
PROVIDERS: ADMIT Hospitalist; ATTEND Internal Medicine
PROC: 0B9C8ZX Drainage of Right Upper Lung Lobe, Via Natural or Artificial Opening Endoscopic, Diagnostic (ICD-10-PCS; principal; 2016-09-20)
PROC: 0B9F8ZX Drainage of Right Lower Lung Lobe, Via Natural or Artificial Opening Endoscopic, Diagnostic (ICD-10-PCS; principal; 2016-09-20)
DX: N39.0 Urinary tract infection, site not specified (principal); I82.441 Acute embolism and thrombosis of right tibial vein; I82.402 Acute embolism and thrombosis of unspecified deep veins of left lower extremity; B96.20 Unspecified Escherichia coli [E. coli] as the cause of diseases classified elsewhere; R91.8 Other nonspecific abnormal finding of lung field; F17.210 Nicotine dependence, cigarettes, uncomplicated; R13.10 Dysphagia, unspecified; K59.00 Constipation, unspecified; F32.9 Major depressive disorder, single episode, unspecified; E78.5 Hyperlipidemia, unspecified; M81.0 Age-related osteoporosis without current pathological fracture; I10 Essential (primary) hypertension; G25.0 Essential tremor; Z99.81 Dependence on supplemental oxygen; D72.829 Elevated white blood cell count, unspecified; E86.0 Dehydration; Z85.3 Personal history of malignant neoplasm of breast; Z83.3 Family history of diabetes mellitus; Z86.73 Personal history of transient ischemic attack (TIA), and cerebral infarction without residual deficits; Z82.49 Family history of ischemic heart disease and other diseases of the circulatory system; Z80.3 Family history of malignant neoplasm of breast; Z79.82 Long term (current) use of aspirin; Z79.899 Other long term (current) drug therapy; Z88.8 Allergy status to other drugs, medicaments and biological substances

== ENCOUNTER 2016-11-09 15:48 | Emergency (ER) | payer OTHER, BC ==
[~2016-11-09] VITALS: Ht 162.6 cm; Wt 60.2 kg
[2016-11-09 15:55] VITALS: TEMP 36.9; Ht 162.6 cm; Wt 60.2 kg
--- NOTE | 2016-11-09 16:31 | EMERGENCY ROOM VISIT NOTE ---
History Report prepared by Hiral: Ezra Love Under the Supervision of: Dr. Remigio Story M.D. First contact with patient: 16:05 Chief Complaint: ABNORMAL LABS Stated Complaint: POTASSIUM LEVELS, HIGH, PER BLOOD WORK- REFERRED History of Present Illness The patient is a 70 year old female who presents to the Emergency Room for high potassium levels that were detected via blood work earlier today. The patient says that she was having blood work because she has a CT scan planned to look at spots on her lungs. She states that there were no problems with having her blood drawn. Per the patient's daughter, the patient was called by her doctor because her potassium levels were "dangerously high" (6.1), so she was told to come back for repeat blood draw. The repeat blood work revealed more normal potassium levels (5.4), but she was still told to come to the ED for evaluation. The patient adds that she had an increased urinary frequency last night, which was a bit higher than usual. She was seen here recently for a UTI, per the patient's daughter. The patient denies any chest pain or nausea. She says that she normally gets short of breath with exertion. She notes no history of kidney issues. The patient takes Aspirin daily. She was seen here in early September for pneumonia. She says that she does not take a potassium supplement, but she eats bananas 2 or 3 times per day. The patient just recently quit smoking cigarettes. The patient's blood work also revealed a creatinine of 0.83, glucose of 90, and sodium of 137. Source of History: patient, family Onset: Detected earlier today Position: other (global - high potassium levels) Symptom Intensity: "dangerously high" potassium levels on first blood draw Associated Symptoms: + urinary symptoms (increased urinary frequency), No chest pain, No nausea Note: No other associated symptoms noted. Review of Systems See HPI for pertinent positives & negatives. A total of 10 systems reviewed and were otherwise negative. Past Medical & Surgical Medical Problems: (1) Carotid stenosis (2) Depression (3) HTN (hypertension) (4) Hyperlipidemia (5) Hypertension (6) Osteoporosis Family History Cancer MOTHER (BREAST CANCER) Diabetes mellitus Hypertension Social History Smoking Status: Former Smoker Alcohol Use: none Drug Use: none Marital Status: single Housing Status: lives with family Occupation Status: retired Current/Historical Medications Scheduled Aspirin (Aspirin 81), 81 MG PO DAILY Citalopram Hydrobromide (Citalopram Hydrobromide), 10 MG PO DAILY Primidone (Mysoline), 250 MG PO BID Propranolol Hcl (Propranolol ER), 60 MG PO DAILY Rivaroxaban (Xarelto), 15 MG PO BID Rosuvastatin Calcium (Crestor), 10 MG PO HS Allergies Coded Allergies: Atorvastatin (Verified Allergy, Unknown, Unstable, 11/09/16) Physical Exam Vital Signs Date Time Temp Pulse Resp B/P (MAP) Pulse Ox O2 Delivery O2 Flow Rate FiO2 11/09/16 17:52 57 126/66 97 11/09/16 16:51 62 11/09/16 15:55 36.9 67 18 129/66 96 Room Air Physical Exam GENERAL: Patient is in no acute distress. HEENT: No acute trauma, normocephalic atraumatic, mucous membranes moist, no nasal congestion, no scleral icterus. NECK: No stridor, no adenopathy, no meningismus, trachea is midline. LUNGS: Diminished breath sounds but no wheezing or rhonchi. Breath sounds equal. HEART: Without murmurs gallops or rubs, regular rate and rhythm. ABDOMEN: Soft, nontender, bowel sounds positive, no hernias, no peritonitis. EXTREMITIES: No cyanosis or edema, full range of motion of all the joints without pain or difficulty, no signs for acute trauma. NEUROLOGIC: Oriented x 3, no acute motor or sensory deficits, no focal weakness. SKIN: No rash, no jaundice, no diaphoresis. Medical Decision & Procedures Laboratory Results Urine dip: trace blood, no signs of infection. ECG Indication: other (abnormal labs - high potassium) Rate (beats per minute): 61 Rhythm: normal sinus Findings: no acute ischemic change, no ectopy ED Course 1606: The patient was evaluated in room B6. A complete history and physical exam was performed. 1619: I discussed the patient with Dr. Hubert Lima nephrology - she recommends to repeat the potassium on Monday, and for the patient to cut down her banana intake to 3 a week. She also recommends to check an EKG and urine. 1726: I reevaluated the patient and she is resting comfortably. The patient verbally expressed understanding and agreement of the treatment plan. The patient will be discharged. Medical Decision Differential diagnoses considered include renal failure, lab error, UTI, hyperkalemia. The patient presents for a higher potassium value. On repeat, her number had lowered to 5.4. She has no complaints. EKG shows a sinus rhythm, no acute ischemia. Her creatinine was not elevated-she was not in renal failure. Urine dip did not show infection. I spoke to the on-call freight associate. The patient is to increase her fluid intake by 2 or 3 glasses per day. She will avoid high potassium foods such as bananas. The patient was encouraged to have a repeat potassium level check on Monday, in about 5 days. She can return for worsening symptoms. Medication Reconcilliation Current Medication List: was personally reviewed by me Blood Pressure Screening Patient's blood pressure: Normal blood pressure Consults Time Called: 1616 Consulting Physician: Dr. Hubert Lima nephrology Returned Call: [phone] I discussed the patient with Dr. Hubert Lima nephrology - she recommends to repeat the potassium on Monday, and for the patient to cut down her banana intake to 3 a week. She also recommends to check an EKG and urine. Impression Primary Impression: Hyperkalemia Scribe Attestation The scribe's documentation has been prepared under my direction and personally reviewed by me in its entirety. I confirm that the note above accurately reflects all work, treatment, procedures, and medical decision making performed by me. Departure Information Dispostion Home / Self-Care Referrals Isha Narvaez M.D. (PCP) Forms HOME CARE DOCUMENTATION FORM, IMPORTANT VISIT INFORMATION Patient Instructions My [facility] [employer] Additional Instructions 2-3 glasses of water per day on top of your regular schedule decreae bananas to 3x per week repeat potassium level check monday return if worsening
[2016-11-09 17:52] VITALS: BP 126/66; PULSE 57; O2SAT 97
== END 2016-11-09 17:53 | disposition home or self-care (01) ==
LOC: C.EDB 15:49
DX: E87.5 Hyperkalemia (principal); I10 Essential (primary) hypertension; E78.5 Hyperlipidemia, unspecified; F32.9 Major depressive disorder, single episode, unspecified; M91.0 Juvenile osteochondrosis of pelvis; Z87.891 Personal history of nicotine dependence; Z79.82 Long term (current) use of aspirin; Z79.899 Other long term (current) drug therapy; Z88.8 Allergy status to other drugs, medicaments and biological substances; Z80.9 Family history of malignant neoplasm, unspecified; Z83.3 Family history of diabetes mellitus; Z82.49 Family history of ischemic heart disease and other diseases of the circulatory system; R93.8 Abnormal findings on diagnostic imaging of other specified body structures

== ENCOUNTER → 2016-11-09 | Outpatient (CLI) | payer OTHER, BC ==
[~2016-11-09] MED LIST changes: +AMOX1TAB43 PO; +CITA10TA4 PO; +ERGO1CAP41 PO; +Nicotine TD; +PRIM250T30 PO; -PRIM250T9 PO; +XRL15 PO
[2016-11-09 12:21] LABS: BLOOD UREA NITROGEN 14 mg/dl (7-18); BUN/CREATININE RATIO 16.5 (10-20); CALCIUM 8.9 mg/dl (8.5-10.1); CARBON DIOXIDE 28 mmol/L (21-32); CHLORIDE 105 mmol/L (98-107); CREATININE 0.83 mg/dl (0.60-1.20); GLUCOSE 90 mg/dl (70-99); POTASSIUM 6.1 mmol/L (3.5-5.1); SODIUM 137 mmol/L (136-145)
--- NOTE | 2016-11-09 12:44 | DIAGNOSTIC IMAGING REPORT ---
CT SCAN OF THE CHEST WITH IV CONTRAST CLINICAL HISTORY: Follow-up abnormal chest CT. COMPARISON STUDY: Chest CT dated 09/18/2016. TECHNIQUE: Following the IV administration of 94 cc of Optiray 320, CT scan of the thorax was performed from the thoracic inlet to the upper abdomen. Images are reviewed in the axial, sagittal, and coronal planes. IV contrast was administered without complication. A dose lowering technique was utilized adhering to the principles of ALARA. CT DOSE: 161.99 mGy.cm FINDINGS: Thyroid: Imaged portions of the thyroid gland are normal in size and attenuation. Thoracic aorta: There is atherosclerotic calcification of the thoracic aorta, which is normal in caliber and demonstrates standard 3-vessel arch anatomy. No dissection is seen. There is approximately 50% stenosis in the left subclavian artery secondary to soft plaque. Pulmonary vasculature: The pulmonary arteries are mildly dilated suggesting pulmonary artery hypertension. There are no filling defects identified in the central pulmonary vessels to indicate pulmonary embolus. Note that this examination was not protocoled for evaluation of the pulmonary arteries. Heart: The heart is mildly enlarged and without pericardial effusion. The coronary arteries are densely calcified. Lungs and pleural spaces: Advanced emphysema is noted. The trachea and central airways are clear. There is trace right pleural effusion. This has decreased in size from previous. Lesions in the right upper and right lower lobes seen on 09/18/2016 of significant decreased in size and no longer contain internal pockets of fluid. The right lower lobe lesion is seen on image #116 and measures 2.7 x 2.4 cm (previously measured proximally 6 cm). The right upper lobe lesion is seen on image #65 and measures up to 3 cm (previously measuring over 4 cm). No new lesions are identified. Linear atelectasis versus scarring is present in left lower lobe. Mediastinum: There is no mediastinal lymphadenopathy. Calcification containing nodes are incidentally noted. Maritza: No hilar adenopathy is seen. There are calcification containing right hilar nodes. Axillae: There is no axillary lymphadenopathy. Upper abdomen: A calcified granuloma is seen in the spleen. There is nearly 50% stenosis in the proximal abdominal aorta which is only partially imaged. Nodular thickening of the left adrenal gland is similar to previous. Skeletal structures: The skeletal structures are osteopenic. Degenerative change and hyperkyphosis is noted in the thoracic spine. There are compression deformities of T4, T5, T6, T7, and T12. No lytic or blastic bony lesions are seen. IMPRESSION: 1. Cardiomegaly and advanced emphysema. 2. Right upper and right lower lobe subpleural lesions with fluid collections seen on 09/18/2016 have significantly decreased in size. The internal fluid collections have resolved. This likely represents a resolving infectious/inflammatory process. A 3 month follow-up CT is recommended for reassessment and to document resolution. 3. There is a trace residual right pleural effusion. This has decreased in size from previous. 4. No mediastinal lymphadenopathy is seen and no new pulmonary lesion is identified. 5. There is approximately 50% stenosis within the left subclavian artery. 6. Additional findings as above. Electronically signed by: Remigio Fonseca M.D. 11/09/2016 12:42 PM Dictated Date/Time: 11/09/2016 12:31 PM
== END | disposition home or self-care (01) ==
LOC: C.CTS 10:52
PROVIDERS: ATTEND Physician Assistant
DX: R93.8 Abnormal findings on diagnostic imaging of other specified body structures (principal); E87.5 Hyperkalemia